=== PATIENT | male | born 1935 | race Caucasian/White ===

== ENCOUNTER 2019-01-12 07:44 | Day surgery (SDC) | payer MEDICARE, BC ==
[2019-01-11 09:31] VITALS: BMI 29.2
[2019-01-12] MEDS ORDERED: PROPOFOL 200 MG/20 ML VIAL ONE (10:16)
--- NOTE | 2019-01-12 11:50 | OP ---
DATE OF PROCEDURE: 01/12/2019 [employer] SURGEON: None. PROCEDURE PERFORMED: Colonoscopy with snare polypectomy. INDICATIONS: 1. Rectal bleeding. 2. Prior history of colon polyps, with last colonoscopy about 11 years ago. MEDICATIONS: See Anesthesia record. FINDINGS: After discussion of the risks, benefits, and alternatives of the procedure, informed consent was obtained and witnessed. Pre-endoscopic cardiopulmonary examination was satisfactory. Time-out was performed before sedation was achieved. Sedation was achieved with Anesthesia assistance in the endoscopy unit. Digital rectal exam was performed, which demonstrated external hemorrhoids. A Pentax adult colonoscope was inserted into the anus and passed forward to the cecum in the usual fashion. Advancement to the cecum was very difficult due to tortuous and redundant colon with extensive colonic looping. Manual pressure and supine positioning required in order to reach the cecum. The cecal base was identified by the appendiceal orifice as well as the ileocecal valve. The terminal ileum was not intubated. The colonoscope was slowly withdrawn in a gradual and circumferential manner with careful examination of the entire colonic mucosa. The quality of the prep was good. In the ascending colon, there were 4 small polyps, all measuring less than 3 mm in diameter. These were all completely removed with cold snare. I was only able to retrieve 1 or 2 of these polyps due to extreme difficulty with positioning of the colonoscope for retrieval. In the sigmoid colon, there was another polyp measuring about 2 mm in diameter. This was completely removed with cold snare and retrieved for pathology. In the rectum, there was another polyp measuring about 2 mm. This was also completely removed with cold snare and retrieved for pathology. There was extensive diverticulosis in the sigmoid colon as well as some in the descending colon. Retroflexion in the rectum demonstrated internal hemorrhoids. The colonoscope was completely withdrawn and the patient allowed to recover. The patient tolerated the procedure well. There were no immediate postprocedure complications. IMPRESSION: 1. Tortuous colon. 2. Heavy sigmoid diverticulosis. 3. Four diminutive ascending colon polyps, all completely removed with cold snare, partially retrieved. 4. Single 2-mm sigmoid colon polyp, completely removed with cold snare and retrieved for pathology. 5. Single 2-mm rectal polyp, completely removed with cold snare and retrieved for pathology. 6. Internal and external hemorrhoids. RECOMMENDATIONS: 1. Follow up pathology on the colon polyps. 2. I would recommend no repeat colonoscopy, due to the patient's age and comorbidities. 3. Add a stool softener, docusate 100 mg by mouth twice daily. Follow up with Dr. Joseph if surgical treatment of hemorrhoids is desired, though I would advise at least giving the stool softeners a good trial and waiting until after his upcoming cardiac procedures. 4. Follow up in the GI Clinic as needed. 5. Follow up as needed. Job ID: [id number]
== END 2019-01-12 12:10 | disposition home or self-care (01) ==
LOC: SDC 07:44
PROVIDERS: ATTEND Internal Medicine
PROC: 0DBK8ZZ Excision of Ascending Colon, Via Natural or Artificial Opening Endoscopic (ICD-10-PCS; principal; 2019-01-12)
PROC: 0DBN8ZZ Excision of Sigmoid Colon, Via Natural or Artificial Opening Endoscopic (ICD-10-PCS; 2019-01-12)
PROC: 0DBP8ZZ Excision of Rectum, Via Natural or Artificial Opening Endoscopic (ICD-10-PCS; 2019-01-12)
DX: K62.5 Hemorrhage of anus and rectum (principal); D12.5 Benign neoplasm of sigmoid colon; K62.1 Rectal polyp; K56.2 Volvulus; K57.30 Diverticulosis of large intestine without perforation or abscess without bleeding; K64.4 Residual hemorrhoidal skin tags; K64.8 Other hemorrhoids; E11.9 Type 2 diabetes mellitus without complications; N40.0 Benign prostatic hyperplasia without lower urinary tract symptoms; E78.00 Pure hypercholesterolemia, unspecified; Z79.82 Long term (current) use of aspirin; Z79.899 Other long term (current) drug therapy; Z86.010 Personal history of colon polyps; Z87.891 Personal history of nicotine dependence
CPT/HCPCS: 88305

== ENCOUNTER 2019-05-16 11:19 | Outpatient (CLI) | payer MEDICARE, BC ==
[2019-05-16 13:38] LABS: #Eosinphils 0.1 thou/uL (0.0-0.7); #Lymphocytes 1.8 thou/uL (1.20-3.40); #Monocytes 0.6 thou/uL (0.11-0.59); #Neutrophils 5.3 thou/uL (1.40-6.50); %Basophils 0.2 % (0.0-1.0); %Eosinophils 1.2 % (0.0-10.0); %Lymphocytes 22.8 % (21.0-51.0); %Neutrophils 67.9 % (42.0-75.0); Hemoglobin 15.2 g/dL (14.0-18.0); Mean Corpuscular HGB CONC 33.7 g/dL (32.0-36.0); Platelet Count 163 thou/uL (130-400); RBC Distribution Width 11.8 % (11.5-14.5); Red Blood Cell (RBC) Count 5.09 mill/uL (4.70-6.10); White Blood Cell (WBC) Count 7.8 thou/uL (4.8-10.8)
[2019-05-16 14:02] LABS: ALT (SGPT) 25 U/L (8-55); AST (SGOT) 22 U/L (5-34); Albumin 4.2 g/dL (3.4-4.8); Alkaline Phosphatase 90 U/L (40-110); Anion Gap 11 mmol/L (10-20); BUN (Urea Nitrogen) 27 mg/dL (8.4-25.7); Bilirubin, Direct 0.3 mg/dL (0.1-0.3); Bilirubin, Total 0.6 mg/dL (0.2-1.2); Calc. Creatinine Clearance 0 mL/min (70-130); Calcium 9.4 mg/dL (7.8-10.44); Carbon Dioxide 29 mmol/L (23-31); Chloride 105 mmol/L (98-107); Estimated GFR-MDRD 59; Glucose 92 mg/dL (83-110); Protein, Total 7.1 g/dL (5.8-8.1); Sodium 141 mmol/L (136-145)
== END 2019-05-16 11:20 | disposition home or self-care (01) ==
LOC: LABBT 11:19
PROVIDERS: ATTEND Surgery
DX: Z01.818 Encounter for other preprocedural examination (principal); K64.9 Unspecified hemorrhoids
CPT/HCPCS: 80048; 80076; 85025; 93005; 93010

== ENCOUNTER 2019-05-19 08:35 | Day surgery (SDC) | payer MEDICARE, BC ==
[2019-05-16 12:35] VITALS: BMI 29.2
[2019-05-19] MEDS ORDERED: ceFOXitin 2 GM/50 ML Duplex BAG ONE (09:23)
[2019-05-19] MEDS ORDERED: Bacitracin Zinc Ointment 30 gm TUBE ONE (10:31)
[2019-05-19] MEDS ORDERED: Bupivacaine PF 0.5% 30 ML VIAL ONE (10:31)
[2019-05-19] MEDS ORDERED: Lidocaine 1% w/Epinephrine 1:100K 20 ML VIAL ONE (10:31)
[2019-05-19] MEDS ORDERED: Fentanyl 100 MCG/2 ML VIAL ONE (10:34)
[2019-05-19] MEDS ORDERED: PHENYLEPHRINE-NS 100 MCG/ML 10 ML SYRINGE ONE (10:54)
[2019-05-19] MEDS ORDERED: Dexamethasone 20 MG/5 ML VIAL ONE (10:54)
[2019-05-19] MEDS ORDERED: PROPOFOL 200 MG/20 ML VIAL ONE (10:54)
[2019-05-19] MEDS ORDERED: Glycopyrrolate 0.2 MG/ML 5 ML SYRINGE ONE (10:54)
[2019-05-19] MEDS ORDERED: Rocuronium Bromide 10 MG/ML (10ML VIAL) ONE (10:54)
[2019-05-19] MEDS ORDERED: Lidocaine 1% PF 5 ML VIAL ONE (10:54)
[2019-05-19] MEDS ORDERED: Ondansetron PF 4 MG/2 ML Vial ONE (10:54)
[2019-05-19] MEDS ORDERED: HYDROcodone/Acetaminophen 5/325 mg Tablet ONE ×2 (12:50→16:13)
--- NOTE | 2019-05-21 16:33 | OP ---
DATE OF PROCEDURE: 05/19/2019 PREOPERATIVE DIAGNOSIS: Bleeding hemorrhoids. PROCEDURE PERFORMED: PPH-stapled hemorrhoidectomy. INDICATIONS: This is an 83-year-old male, who has been having a several-year history of rectal bleeding. Colonoscopy showed it to be from the hemorrhoids. At one point, he had to be transfused due to the bleeding and now because of cardiac valvular issues, needs to be placed on anticoagulation. FINDINGS: Grade 3 prolapsing hemorrhoids. DESCRIPTION OF PROCEDURE: After informed consent was obtained, the patient was taken to the operating room, given general endotracheal anesthesia, placed in the prone brennan-knife position. Buttock cheeks were spread apart with tape. Local anesthesia with 0.5% Marcaine was infiltrated as a four-quadrant anal block. The anal retractor was inserted maximally and sutured in place with 0 silk suture in 4 quadrants. The pursestring guide was then inserted and a pursestring of 2-0 Prolene was placed circumferentially in the rectal mucosa 1.5 cm from the dentate line. The stapler was opened maximally. The anvil was inserted proximal to the pursestring. The strings were brought through the channels on the stapler and tied as a knot. This was then held closed around the shaft as the stapler closed. The stapler was fired, held for 30 seconds, then released for 30 seconds, opened partially and removed. The specimen inspected, contained hemorrhoids, no muscle fibers. These were sent to Pathology for further analysis. There was some bleeding anteriorly, which was controlled with a 3-0 chromic [id number]. The area was irrigated. Hemostasis was assured. Gelfoam impregnated with bacitracin was placed within the anal canal. Sterile bandage applied. The patient tolerated the procedure well, transferred to Recovery in good condition. Sponge and needle count verified correct x2. Job ID: [id number]
== END 2019-05-19 16:25 | disposition home or self-care (01) ==
LOC: SDC 08:35
PROVIDERS: ATTEND Surgery
PROC: 06BY3ZC Excision of Hemorrhoidal Plexus, Percutaneous Approach (ICD-10-PCS; principal; 2019-05-19)
DX: K64.2 Third degree hemorrhoids (principal); E78.00 Pure hypercholesterolemia, unspecified; I10 Essential (primary) hypertension; M19.90 Unspecified osteoarthritis, unspecified site; Z87.891 Personal history of nicotine dependence; Z79.82 Long term (current) use of aspirin; Z79.899 Other long term (current) drug therapy
CPT/HCPCS: 88304; J0694; J1100; J2001; J2405; J2704; J3010; S0020

== ENCOUNTER 2019-09-25 06:29 | Outpatient (CLI) | payer MEDICARE, BC, OTHER ==
[2019-09-25 14:34] LABS: #Eosinphils 0.1 thou/uL (0.0-0.7); #Lymphocytes 1.3 thou/uL (1.20-3.40); #Monocytes 0.5 thou/uL (0.11-0.59); #Neutrophils 5.8 thou/uL (1.40-6.50); %Basophils 0.3 % (0.0-1.0); %Lymphocytes 17.1 % (21.0-51.0); %Monocytes 6.4 % (0.0-10.0); %Neutrophils 75.2 % (42.0-75.0); Hemoglobin 15.7 g/dL (14.0-18.0); Mean Corpuscular Hemoglobin 29.6 pg (27.0-31.0); Mean Corpuscular Volume 89.8 fL (78.0-98.0); Mean Platelet Volume 7.4 fL (7.4-10.4); Platelet Count 176 thou/uL (130-400); RBC Distribution Width 11.7 % (11.5-14.5); Red Blood Cell (RBC) Count 5.29 mill/uL (4.70-6.10); White Blood Cell (WBC) Count 7.7 thou/uL (4.8-10.8)
[2019-09-25 14:43] LABS: ALT (SGPT) 25 U/L (8-55); AST (SGOT) 20 U/L (5-34); Albumin 4.3 g/dL (3.4-4.8); Alkaline Phosphatase 89 U/L (40-110); Anion Gap 12 mmol/L (10-20); BUN (Urea Nitrogen) 26 mg/dL (8.4-25.7); Bilirubin, Total 0.6 mg/dL (0.2-1.2); Calc. Creatinine Clearance 0 mL/min (70-130); Calcium 9.1 mg/dL (7.8-10.44); Carbon Dioxide 26 mmol/L (23-31); Chloride 106 mmol/L (98-107); Estimated GFR-MDRD 57; Globulin 2.7 g/dL (2.4-3.5); Glucose 101 mg/dL (83-110); Sodium 140 mmol/L (136-145)
[2019-09-26 13:10] LABS: SARS-CoV-2 MS2 Positive; SARS-CoV-2 N Gene Negative; SARS-CoV-2 S Gene Negative; SARS-CoV-2 orf1ab Negative
== END 2019-09-25 06:30 | disposition home or self-care (01) ==
LOC: LABBT 06:29
PROVIDERS: ATTEND Internal Medicine Cardiovascular Disease
DX: Z01.812 Encounter for preprocedural laboratory examination (principal); Z11.59 Encounter for screening for other viral diseases; I35.0 Nonrheumatic aortic (valve) stenosis
CPT/HCPCS: 80053; 85025; U0003; 87635

== ENCOUNTER 2019-09-28 05:50 | Day surgery (SDC) | payer MEDICARE, BC ==
[2019-09-25 10:11] VITALS: BMI 27.3
[2019-09-28] MEDS ORDERED: Midazolam HCl 2 mg/2 ml Vial ONE (08:48)
[2019-09-28] MEDS ORDERED: Fentanyl 100 MCG/2 ML VIAL ONE (08:48)
[2019-09-28] MEDS ORDERED: Nitroglycerin 2% Ointment 1 INCH/1 GM Packet ONE (09:25)
== END 2019-09-28 14:55 | disposition home or self-care (01) ==
LOC: CCL 05:50
PROVIDERS: ATTEND Internal Medicine Cardiovascular Disease
PROC: 4A023N7 Measurement of Cardiac Sampling and Pressure, Left Heart, Percutaneous Approach (ICD-10-PCS; principal; 2019-09-28)
PROC: B2111ZZ Fluoroscopy of Multiple Coronary Arteries using Low Osmolar Contrast (ICD-10-PCS; 2019-09-28)
DX: I35.0 Nonrheumatic aortic (valve) stenosis (principal); I25.10 Atherosclerotic heart disease of native coronary artery without angina pectoris; I70.0 Atherosclerosis of aorta; I45.10 Unspecified right bundle-branch block; I10 Essential (primary) hypertension; E78.00 Pure hypercholesterolemia, unspecified; K21.9 Gastro-esophageal reflux disease without esophagitis; I49.3 Ventricular premature depolarization; G47.30 Sleep apnea, unspecified; Z86.73 Personal history of transient ischemic attack (TIA), and cerebral infarction without residual deficits; Z87.891 Personal history of nicotine dependence; Z79.82 Long term (current) use of aspirin; Z79.899 Other long term (current) drug therapy
CPT/HCPCS: 76942; 93454; 99152; 99153; J1644; J2250; J3010; Q9967

== ENCOUNTER 2019-10-25 12:01 | Outpatient (CLI) | payer MEDICARE, BC, OTHER ==
[2019-10-26 13:27] LABS: SARS-CoV-2 MS2 Positive; SARS-CoV-2 N Gene Negative; SARS-CoV-2 S Gene Negative; SARS-CoV-2 orf1ab Negative
== END 2019-10-25 12:02 | disposition home or self-care (01) ==
LOC: LABSCS 12:01
PROVIDERS: ATTEND Internal Medicine Cardiovascular Disease
DX: Z01.812 Encounter for preprocedural laboratory examination (principal); Z11.59 Encounter for screening for other viral diseases; I10 Essential (primary) hypertension
CPT/HCPCS: 87635; U0003

== ENCOUNTER 2020-02-29 20:27 | Inpatient (IN) | payer MEDICARE, BC ==
[~2020-02-29 20:27] MED LIST: Iopamidol-370 76% 500 ML 1 ML ONE
[2020-02-29 21:19] LABS: #Lymphocytes 0.5 thou/uL (1.20-3.40); #Monocytes 1.1 thou/uL (0.11-0.59); #Neutrophils 11.2 thou/uL (1.40-6.50); %Eosinophils 0.1 % (0.0-10.0); %Monocytes 8.8 % (0.0-10.0); %Neutrophils 87.2 % (42.0-75.0); Hemoglobin 14.9 g/dL (14.0-18.0); Mean Corpuscular HGB CONC 33.8 g/dL (32.0-36.0); Mean Corpuscular Hemoglobin 29.8 pg (27.0-31.0); Mean Platelet Volume 7.5 fL (7.4-10.4); Platelet Count 134 thou/uL (130-400); RBC Distribution Width 11.9 % (11.5-14.5); Red Blood Cell (RBC) Count 5.01 mill/uL (4.70-6.10); White Blood Cell (WBC) Count 12.9 thou/uL (4.8-10.8)
--- NOTE | 2020-02-29 21:19 | RAD ---
RADIOGRAPH CHEST 1 VIEW: DATE: 02/29/2020 HISTORY: 84-year-old male with cough and fever FINDINGS: The thoracic aorta is tortuous and ectatic. There is no evidence of airspace density, pulmonary edema , or pneumothorax. The lateral costophrenic angles are not effaced. Mildly elevated left hemidiaphragm. Minimal left basilar subsegmental atelectasis. IMPRESSION: 1) No acute pulmonary findings. 2) ectasia of thoracic aorta.
[2020-02-29 21:31] LABS: ALT (SGPT) 18 U/L (8-55); AST (SGOT) 17 U/L (5-34); Albumin 4.1 g/dL (3.4-4.8); Alkaline Phosphatase 90 U/L (40-110); Anion Gap 16 mmol/L (10-20); BUN (Urea Nitrogen) 39 mg/dL (8.4-25.7); Bilirubin, Total 0.9 mg/dL (0.2-1.2); Calc. Creatinine Clearance 0 mL/min (70-130); Calcium 9.4 mg/dL (7.8-10.44); Carbon Dioxide 23 mmol/L (23-31); Chloride 106 mmol/L (98-107); Estimated GFR-MDRD 37; Globulin 3.3 g/dL (2.4-3.5); Glucose 124 mg/dL (83-110); Potassium 3.3 mmol/L (3.5-5.1); Protein, Total 7.4 g/dL (5.8-8.1); Sodium 142 mmol/L (136-145)
[2020-02-29 21:52] LABS: Bilirubin Negative (Negative); Blood, Urine Large (Negative); Glucose, Urine (Dipstick) Negative (Negative); Ketone, Urine Negative (Negative); Leukocyte Moderate (Negative); Nitrite Negative (Negative); Protein, Urine (Dipstick) 100 mg/dL (Neg-Trace); Specific Gravity, Urine 1.025 (1.005-1.030); Urobilinogen 0.2 mg/dL (Less than 2); pH, Urine 5.5 (5.0-9.0)
[2020-02-29 21:59] LABS: Clarity Cloudy (Clear)
[2020-02-29 22:01] LABS: Bacteria/HPF 3+ HPF (None Seen); Squamous Epithelial 0-3 HPF (0-3); WBC/HPF 21-50 HPF (0-3)
[2020-02-29] MEDS ORDERED: cefTRIAXone\\ROCEPHIN 2 GM VIAL ONE (22:11)
--- NOTE | 2020-02-29 23:07 | CT ---
CT ABDOMEN WITH CONTRAST CT PELVIS WITH CONTRAST: DATE: 02/29/2020 HISTORY: 84-year-old male with fever, abdominal pain, nausea, and vomiting COMPARISON: 11/21/2018 TECHNIQUE: IV injection of iodinated contrast media: administered. Oral contrast media:Not administered FINDINGS: Multiple moderate sized bilateral renal cysts, including parapelvic and cortical cysts. Both of the previously demonstrated left renal lower pole calculi have migrated distally. One of them, an 11 x 9 x 7 mm calculus, is in the posterior, dependent aspect of the left renal pelvi s (and the left renal pelvis is extrinsically compressed by a large parapelvic hemorrhagic renal cyst that measures 6 x 4.5 x 5.5 cm). The other calculus, measuring 11 x 8 x 8 mm, is lodged at the left UPJ or proximal ureter, located at the L3-4 level. This causes a new finding of moderate dilation of all of the left renal calyces. There is another new finding of an organized fluid throughout the left perirenal space, consistent wi th edema and/or extravasated urine from pyelocalyceal blowout. No hydronephrosis of right kidney. Multilevel severe degenerative disc disease throughout the lumbar spine with multilevel high-grade bi lateral neural foraminal stenosis. Paget's disease of entire left ilium, ischium, and pubis. Enlarged prostate invaginating bladder base. Mural thickness of urinary bladder within normal limits. Heavy atherosclerotic callus patient of abdominal aorta and its branches without aneurysm. New nonspecific platelike streaky densities at base of left lower lobe, either subsegmental atelectas is or scarring. No pleural effusion, ascites, small bowel dilation, or colonic diverticulitis. No major pathology identified involving liver, pancreas, adrenals, or spleen. Cecum and noninflamed appendix are in the right upper quadrant.. IMPRESSION: 1) left-sided obstructive uropathy: An 11 mm calculus lodged at the left proximal ureter or ureterope lvic junction, causing left hydronephrosis, and fluid throughout the left perirenal space. 2) the other 11 mm calculus has migrated to the left renal pelvis, and could be a source of obstructi on in the future. 3) large number of moderate to large bilateral renal cysts, both parapelvic and cortical 4) severe lumbar spondylosis. 5) Paget's disease involving entire left hemipelvis..
[2020-02-29] MEDS ORDERED: Ondansetron PF 4 MG/2 ML Vial IVP PRN (23:43)
[2020-02-29] MEDS ORDERED: Acetaminophen 650 MG Suppository PR PRN (23:43)
[2020-02-29] MEDS ORDERED: Sodium Chloride 0.9% 1,000 ML IV SCH (23:45)
[2020-03-01] MEDS ORDERED: Morphine 2 MG/ML VIAL SLOW IVP PRN (00:25)
--- NOTE | 2020-03-01 00:32 | PDOC.BPN ---
- Brief Progress Note [id number] HP dictated
[2020-03-01 02:33] VITALS: BMI 28.5
--- NOTE | 2020-03-01 02:44 | HP ---
CHIEF COMPLAINT: Abdominal pain, nausea and vomiting. HISTORY OF PRESENT ILLNESS: Mr. Galo is an 84-year-old male, with past medical history of TIA, renal insufficiency, umbilical and groin hernia, coronary artery bypass graft surgery x1, hyperlipidemia, and kidney stones, presented to the emergency room with lower abdominal pain, left flank pain as well as dysuria for the last 2 days. Patient also had nausea and vomiting. Patient states that the abdominal pain began yesterday and got severe last night and he could not sleep. He was given oral Flagyl and Levaquin by his primary care physician for suspected diverticulitis. Patient continued to have severe pain and dysuria today. He felt very weak and had urine incontinence. Denies chest pain. No cough. Workup in the emergency room, patient was found to have left-sided obstructive uropathy and an 11 mm calculus lodged at the left proximal ureter causing left hydronephrosis. Patient was found to have an infected urine. Potassium 3.3, creatinine 1.7. Glucose 124. WBC count elevated at 12.9. Chest x-ray, no acute findings. Patient was given IV antibiotics, urologist being consulted. Patient is being admitted to hospital for further management. PAST MEDICAL HISTORY: As mentioned above in history of present illness. PAST SURGICAL HISTORY: 1. Hernia repair. 2. Fatty tumor removal. PAST PSYCHIATRIC HISTORY: Anxiety. FAMILY HISTORY: Reviewed and noncontributory. HOME MEDICATIONS: See home medication reconciliation form for updated medications. ALLERGIES: NO KNOWN ALLERGIES. REVIEW OF SYSTEMS: Review of 14 systems negative, except what is mentioned in history of present illness. PHYSICAL EXAMINATION: GENERAL: Patient is awake, alert, in moderate distress. VITAL SIGNS: Blood pressure 139/61, pulse is 85, respiratory rate is 24, temperature is 99.2, and oxygen saturation is 94% on room air. HEAD AND NECK: Normocephalic, atraumatic. Neck is supple. No JVD. CHEST: Fair bilateral air entry. HEART: S1, S2. Regular. ABDOMEN: Soft with lower abdominal tenderness, bowel sounds present. NEUROLOGIC: Awake, alert, and oriented x3. PSYCH: Normal mood. GENITOURINARY: Left flank tenderness and suprapubic tenderness. ASSESSMENT AND PLAN: 1. Infected ureter calculus with left-sided hydronephrosis. 2. Acute urinary tract infection. 3. Acute kidney injury on chronic kidney disease. 4. Coronary artery disease with history of coronary artery bypass graft surgery. 5. Hyperlipidemia. PLAN: 1. Admit. 2. N.p.o. after midnight. 3. IV fluids. 4. IV antibiotics. 5. Urologist consult for further management. 6. Reconcile home medications. 7. DVT prophylaxis if appropriate. 8. Expected length of stay, 2 midnights. Job ID: [id number]
[2020-03-01 04:10] LABS: Anion Gap 14 mmol/L (10-20); BUN (Urea Nitrogen) 38 mg/dL (8.4-25.7); Calc. Creatinine Clearance 45 mL/min (70-130); Calcium 8.5 mg/dL (7.8-10.44); Carbon Dioxide 24 mmol/L (23-31); Chloride 109 mmol/L (98-107); Estimated GFR-MDRD 41; Glucose 137 mg/dL (83-110); Potassium 3.2 mmol/L (3.5-5.1); Sodium 144 mmol/L (136-145)
[2020-03-01 04:32] LABS: #Lymphocytes 0.2 thou/uL (1.20-3.40); #Monocytes 0.7 thou/uL (0.11-0.59); #Neutrophils 9.4 thou/uL (1.40-6.50); %Basophils 0.1 % (0.0-1.0); %Lymphocytes 2.2 % (21.0-51.0); %Monocytes 7.1 % (0.0-10.0); %Neutrophils 90.6 % (42.0-75.0); Hemoglobin 13.1 g/dL (14.0-18.0); Mean Corpuscular HGB CONC 34.1 g/dL (32.0-36.0); Mean Corpuscular Hemoglobin 30.2 pg (27.0-31.0); Mean Corpuscular Volume 88.6 fL (78.0-98.0); Mean Platelet Volume 7.3 fL (7.4-10.4); Platelet Count 108 thou/uL (130-400); Platelet Morphology Comment Appears Decreased; RBC Distribution Width 11.9 % (11.5-14.5); Red Blood Cell (RBC) Count 4.33 mill/uL (4.70-6.10); White Blood Cell (WBC) Count 10.4 thou/uL (4.8-10.8)
[2020-03-01] MEDS ORDERED: ALPRAZolam 0.25 MG TAB PO PRN (06:56)
--- NOTE | 2020-03-01 08:35 | CON ---
DATE OF CONSULTATION: 03/01/2020 REASON FOR CONSULTATION: Kidney stone. CHIEF COMPLAINT: Fevers. HISTORY OF PRESENT ILLNESS: This is an 84-year-old male, patient of Dr. Rich with a history of kidney stones. He has passed 2 stones in the past. For the past week, he has been having chills mostly at night and then began to have abdominal pain that his primary care provider initially felt was diverticulitis. He became more weak through the day yesterday and began having worsening urinary incontinence, which is present at his baseline. He presented to the emergency room, reporting left-sided abdominal pain, fever of 104, and weakness. In the ER, CT scan identified a large left proximal ureteral stone with hydronephrosis. He was admitted for hydronephrosis and sepsis. overnight, his pain has mostly resolved, having only discomfort 1/10 to 2/10. He has not had any further fevers or chills overnight. He does continue to have incontinence and notes hematuria. He is currently on finasteride and tamsulosin, but has never had prostate surgery. PAST MEDICAL HISTORY: Coronary artery disease, hyperlipidemia, kidney stones, and enlarged prostate. PAST SURGICAL HISTORY: Hernia repair. FAMILY HISTORY: Reviewed, noncontributory. HOME MEDICATIONS: Reviewed, pertinent for tamsulosin and finasteride. ALLERGIES: NO KNOWN ALLERGIES. SOCIAL HISTORY: . Lives at home. REVIEW OF SYSTEMS: 12-point review of systems is negative except as mentioned above. PHYSICAL EXAMINATION: GENERAL: No acute distress. Conversant. HEENT: Normocephalic, atraumatic. Extraocular movements intact. Sclerae anicteric. NECK: Supple. Trachea midline. Unlabored breathing. Symmetric chest expansion. HEART: Regular rate and rhythm. ABDOMEN: Soft, nontender, nondistended. No flank tenderness. No suprapubic tenderness. Adult diaper with mildly hematuric urine. SKIN: Warm and dry. EXTREMITIES: No peripheral edema. NEUROLOGIC: Alert and oriented x3. PSYCHIATRIC: Normal mood and affect. LABORATORY DATA: Reviewed. White count 12.9 on admission, 10.4 this morning. Creatinine 1.77 on admission, 1.63 this morning. IMAGING: I personally reviewed his CT scan, which does show a 10- to 11-mm proximal left ureteral stone with a similar stone further into the renal pelvis with hydronephrosis. ASSESSMENT AND PLAN: Left ureteral and renal stones, hydronephrosis, urinary tract infection. Given the patient's age and obstructing stone with infection, we will need to proceed with cystoscopy and stent placement. I explained this procedure to him in detail including the expected postoperative course including the need for stone treatment at some point down the road likely with Dr. Rich, and the risks of the procedure including bleeding, infection, pain, and inability to bypass the stone to place a stent, possibly requiring nephrostomy tube. He and his expressed understanding and wished to proceed. Job ID: [id number]
[2020-03-01] MEDS ORDERED: Finasteride 5 MG TAB PO SCH (09:00)
[2020-03-01] MEDS: Rosuvastatin 20 MG TAB PO SCH (09:01)
[2020-03-01] MEDS: Amlodipine 10 MG TAB PO SCH (09:01)
[2020-03-01] MEDS: Finasteride 5 MG TAB PO SCH (09:01)
[2020-03-01 09:39] LABS: SARS-CoV-2 MS2 Positive; SARS-CoV-2 N Gene Negative; SARS-CoV-2 S Gene Negative; SARS-CoV-2 by NAA Not Detected (NotDetected); SARS-CoV-2 orf1ab Negative
[2020-03-01] MEDS: cefTRIAXone\\ROCEPHIN 1 GM in Sodium Chloride 0.9% 100 ML IVPB SCH (12:30)
--- NOTE | 2020-03-01 13:09 | PDOC.HOSPP ---
- Subjective Encounter Date: 03/01/20 Encounter Time: 12:15 Subjective: is npo for cystoscopy later today left loin pain is better now mild sob on talking, no chest pain or palp no nausea or vomiting now - Objective Vital Signs & Weight: Vital Signs (12 hours) Temp Pulse Resp BP Pulse Ox 03/01/20 09:01 70 03/01/20 07:19 98.2 F 70 18 121/58 L 94 L 03/01/20 04:00 98.3 F 91 16 132/60 94 L 03/01/20 01:10 98.5 F 100 20 168/85 H 93 L Weight Weight 204 lb 3.2 oz I&O: 02/29/20 03/01/20 03/02/20 06:59 06:59 06:59 Intake Total 500 Output Total 320 Balance 180 Result Diagrams: 03/01/20 03:42 03/01/20 03:42 Hospitalist ROS - Medication Medications: Active Medications Generic Name Dose Route Start Last Admin Trade Name Freq PRN Reason Stop Dose Admin Amlodipine Besylate 10 mg 03/01/20 09:00 03/01/20 09:01 Amlodipine 10 Mg Tab PO 10 mg DAILY AZALIA Administration Finasteride 5 mg 03/01/20 09:00 03/01/20 09:01 Finasteride 5 Mg Tab PO 5 mg DAILY AZALIA Administration Ceftriaxone Sodium 1 gm/ 100 mls @ 200 mls/hr 03/01/20 12:00 03/01/20 12:30 Sodium Chloride IVPB 100 mls Q24HR AZALIA Administration Ondansetron HCl 4 mg 02/29/20 23:43 03/01/20 01:53 Ondansetron Pf 4 Mg/2 Ml Vial IVP 4 mg Q6H PRN Administration Nausea/Vomiting Pantoprazole Sodium 40 mg 03/01/20 09:00 03/01/20 09:00 Pantoprazole 40 Mg Tab PO 40 mg DAILY AZALIA Administration Rosuvastatin Calcium 20 mg 03/01/20 09:00 03/01/20 09:01 Rosuvastatin 20 Mg Tab PO 20 mg DAILY AZALIA Administration Sertraline HCl 200 mg 03/01/20 09:00 03/01/20 09:00 Sertraline Hcl 100 Mg Tab PO 200 mg DAILY AZALIA Administration Sodium Chloride 10 ml 03/01/20 09:00 03/01/20 09:01 Flush - Normal Saline 10 Ml Syringe IVF 10 ml Q12HR AZALIA Administration - Exam General Appearance: awake alert Eye: PERRL, anicteric sclera ENT: no oropharyngeal lesions, moist mucosa Neck: supple, symmetric Heart: RRR, no murmur Respiratory: no wheezes, rales Gastrointestinal: soft, non-tender, non-distended, normal bowel sounds Extremities: no cyanosis, no edema Neurological: cranial nerve grossly intact, no focal deficits Psychiatric: A&O x 3 Hosp A/P (1) Ureteral stone with hydronephrosis Code(s): N13.2 - HYDRONEPHROSIS WITH RENAL AND URETERAL CALCULOUS OBSTRUCTION Status: Acute (2) UTI (urinary tract infection) Status: Acute Qualifiers: Urinary tract infection type: acute cystitis Hematuria presence: with hematuria Qualified Code(s): N30.01 - Acute cystitis with hematuria (3) Acute kidney injury superimposed on CKD Code(s): N17.9 - ACUTE KIDNEY FAILURE, UNSPECIFIED; N18.9 - CHRONIC KIDNEY DISEASE, UNSPECIFIED Status: Acute (4) h/o tavr Status: Chronic (5) CAD (coronary artery disease) Code(s): I25.10 - ATHSCL HEART DISEASE OF [place] CORONARY ARTERY W/O ANG PCTRS Status: Chronic Qualifiers: Coronary Disease-Associated Artery/Lesion type: [place] artery [place] vs. transplanted heart: [place] heart Associated angina: without angina Qualified Code(s): I25.10 - Atherosclerotic heart disease of [place] coronary artery without angina pectoris (6) Dyslipidemia Code(s): E78.5 - HYPERLIPIDEMIA, UNSPECIFIED Status: Chronic (7) BPH (benign prostatic hyperplasia) Code(s): N40.0 - BENIGN PROSTATIC HYPERPLASIA WITHOUT LOWER URINRY TRACT SYMP Status: Chronic Qualifiers: Lower urinary tract symptom presence: unspecified whether lower urinary tract symptoms present Qualified Code(s): N40.0 - Benign prostatic hyperplasia without lower urinary tract symptoms - Plan is on ceftriaxone dc iv fluids due to mild volume overload, watch for BP and if needed restart h/o tavr done in November in [facility] will get echo for ef and valve function continue norvasc, zetia, crestor, sertraline, flomax and proscar hemostable d/w patient and at bedside will have cystoscopy and stenting on left side this afternoon by
[2020-03-01] MEDS ORDERED: Lidocaine 1% PF 5 ML VIAL ONE (13:14)
[2020-03-01] MEDS ORDERED: PROPOFOL 200 MG/20 ML VIAL ONE (13:14)
[2020-03-01] MEDS ORDERED: Ondansetron PF 4 MG/2 ML Vial ONE (13:14)
[2020-03-01] MEDS ORDERED: Dexamethasone 20 MG/5 ML VIAL ONE (13:14)
--- NOTE | 2020-03-01 14:11 | CON ---
DATE OF CONSULTATION: 03/01/2020 SERVICE: Nephrology. REASON FOR CONSULTATION: Acute kidney injury and hydronephrosis. REQUESTING PHYSICIAN: Taya Aguilar MD. HISTORY OF PRESENT ILLNESS: An 84-year-old male with known history of CKD, coronary artery disease status post CABG, hyperlipidemia, and nephrolithiasis, who presented to the hospital with worsening lower abdominal pain, left flank pain as well as dysuria associated with nausea and vomiting as well as fever. Further evaluation revealed elevated creatinine necessitating nephrology consult. The patient also had a CT scan of the abdomen, which showed an obstructing nephrolithiasis with hydronephrosis on the left side. The patient had been seen by urologist and cystoscopy with stent placement is planned. Patient, who had a high-grade fever on presentation as well as pain, reports feeling a lot better. PAST MEDICAL HISTORY: 1. Aortic valve dysfunction status post TAVR. 2. Prior TIA. 3. CKD stage 3. 4. Umbilical and groin hernia. 5. Coronary artery disease. 6. Hyperlipidemia. 7. Nephrolithiasis. 8. BPH. PAST SURGICAL HISTORY: 1. Hernia repair. 2. TAVR. 3. CABG. 4. Fatty tumor removal. FAMILY HISTORY: Reviewed, but noncontributory. SOCIAL HISTORY: The patient lives with family. ALLERGIES: NO KNOWN DRUG ALLERGIES REPORTED. MEDICATIONS: Prior to hospital medications are as follows; 1. Amlodipine 10 mg p.o. daily. 2. Clonidine 0.1 mg p.o. p.r.n. for acute elevation in blood pressure. 3. Plavix 75 mg p.o. daily. 4. Crestor 20 mg p.o. daily. 5. Aspirin 81 mg daily. 6. Lisinopril/hydrochlorothiazide 20/12.5 one tablet p.o. daily. 7. Finasteride 5 mg p.o. daily. 8. Protonix 40 mg p.o. daily. 9. Sertraline 200 mg p.o. daily. 10. Tamsulosin 0.8 mg p.o. daily at bedtime. 11. Xanax 0.25 mg p.o. daily at bedtime. 12. Zetia 10 mg p.o. daily at bedtime. 13. Levocetirizine 5 mg p.o. daily. Current hospital medications are as follows; 1. Ceftriaxone 1 g IV daily. 2. Normal saline at 75 cc/h. 3. Amlodipine 10 mg p.o. daily. 4. Zetia 10 mg p.o. daily at bedtime. 5. Finasteride 5 mg p.o. daily. 6. Protonix 40 mg p.o. daily. 7. Crestor 20 mg p.o. daily. 8. Sertraline 200 mg p.o. daily. 9. Tamsulosin 0.8 mg p.o. daily. 10. Xanax 0.25 p.o. daily at bedtime p.r.n. anxiety. 11. Morphine p.r.n. REVIEW OF SYSTEMS: 12-point review of systems performed was negative other than pertinent positives and negatives included in the History of Present Illness. PHYSICAL EXAMINATION: VITAL SIGNS: Temperature 98.2, pulse 70, respiratory rate 18, SpO2 of 94% on room air, blood pressure is 121/58. GENERAL: Comfortable elderly male, in no obvious distress. Afebrile. Anicteric. Acyanotic. HEENT: Normocephalic, atraumatic. Oral mucosa is moist. NECK: Supple with no obvious JVD. CARDIOVASCULAR: Regular rhythm and rate with normal heart sounds 1 and 2. Systolic murmur maximal at the aortic area noted. RESPIRATORY: Fair air entry bilaterally with some few bibasilar crackles posteriorly. No obvious rhonchi or use of accessory muscles appreciated. GI: Full, soft, nontender, nondistended with normal bowel sounds. UROGENITAL: Bilateral costophrenic angle tenderness noted. EXTREMITIES: Grossly normal looking atraumatic with no obvious edema or erythema. DAIRY HAND: Conscious and alert, oriented x3 with appropriate mental status. The patient is mildly hard of hearing. Otherwise, cranial nerves 2 through 12 are grossly intact. Moves all extremities. DIAGNOSTIC DATA: CBC today showed WBC count of 10.4, hemoglobin of 13.1, MCV of 88.6, platelets of 108. On presentation, however, WBC was 12.9 and hemoglobin was 14.9, and platelets 134. BMP today showed sodium 144, potassium 3.2, chloride 109, CO2 of 24, BUN 38, creatinine 1.63, glucose 137, calcium 8.5. On presentation yesterday, however, sodium was 142, potassium 3.3, chloride 106, CO2 of 23, BUN 39, creatinine 1.77. Review of medical records showed the patient had a creatinine of 1.21 on September 25, 2019. Baseline creatinine seems to range from 1.0 to 1.2. Urinalysis on presentation yesterday showed yellow cloudy urine with pH of 5.5 specific gravity of 1.025; positive protein; negative glucose, ketone, nitrite, and bilirubin. Blood was large and leukocyte esterase was moderate. Microscopy showed 11 to 20 rbc's and 21 to 50 wbc's with 3+ bacteria. CT scan of the abdomen and pelvis without contrast performed on presentation on February 20 showed left-sided obstructive uropathy with an 11 mm calculus lodged at the left proximal ureter, ureteropelvic junction causing left hydronephrosis. Also noted was another 11 mm calculus, which has migrated to the left renal pelvis and could be a source of the obstruction in the future. Noted also was a large number of moderate to large bilateral renal cysts, both parapelvic and cortical as well as severe lumbar spondylosis and Paget disease involving the entire left hemipelvis. Also found was new organized fluid throughout the left perirenal space consistent with edema or extravasated urine from pyelocaliceal blowout. ASSESSMENT: 1. Acute kidney injury: Most likely due to pyelonephritis and obstructive uropathy. 2. Nephrolithiasis with obstruction. 3. Presumed pyelonephritis/complicated urinary tract infection. 4. Sepsis. 5. Hypokalemia. 6. Chronic kidney disease stage 3. PLAN: 1. Agree with IV fluid therapy. We will, however, substitute normal saline with lactated Ringer in the view of hyperchloremia. 2. We will also get a plasma magnesium level and replete same if indicated given persistent hypokalemia. 3. Agree with antibiotic therapy. 4. We will monitor fluid status closely in view of planned cystoscopy with stent placement. The patient is at increased risk of post obstruction diuresis. 5. We will hold lisinopril and hydrochlorothiazide at this point due to AMOS. Further treatment to follow depending on hospital course and review of other diagnostic test. Job ID: [id number]
[2020-03-01] MEDS ORDERED: Ondansetron HCl/PF 4 MG/2 ML Vial IVP PRN (16:15)
[2020-03-01] MEDS ORDERED: Fentanyl 100 MCG/2 ML VIAL ONE (17:39)
[2020-03-01] MEDS ORDERED: Iothalamate Meglumine 60% 50 ML VIAL FS ONE (18:03)
[2020-03-01] MEDS ORDERED: traMADol HCl 50 MG TAB PO PRN (19:55)
[2020-03-01] MEDS ORDERED: Oxybutynin 5 MG TAB PO PRN (19:55)
[2020-03-01] MEDS ORDERED: Phenazopyridine HCl 97.5 MG TABLET PO PRN (19:55)
[2020-03-01] MEDS ORDERED: Tamsulosin HCl 0.4 MG CAP PO SCH (21:00)
[2020-03-01] MEDS: Tamsulosin HCl 0.4 MG CAP PO SCH (21:18)
[2020-03-01] MEDS: Ezetimibe 10 MG TAB PO SCH (21:18)
[2020-03-01] MEDS: Lactated Ringer's 1,000 ML IV SCH (21:19)
--- NOTE | 2020-03-02 00:02 | OP ---
DATE OF PROCEDURE: 03/01/2020 SERVICE: Urology. PREOPERATIVE DIAGNOSIS: Left ureteral stone and renal stone. POSTOPERATIVE DIAGNOSIS: Left ureteral and renal stone. PROCEDURE PERFORMED: Cystoscopy with left ureteral stent placement 6 x 26 double-J stent. INDICATIONS FOR PROCEDURE: Mr. Galo is an 84-year-old white male, who is currently a patient of Dr. Radhames Rich. He has had kidney stones in the past. He presented to the emergency room with left-sided flank pain with discovery of an 11 mm ureteral and then renal stone as well. 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 Rich behalf since he is not available at the moment. I have discussed the procedure with the patient, including risks and benefits and he agreed to proceed forward. He does understand that he needs to keep the ureteral stent in until Dr. Rich's surgery, but must continue to follow up to avoid serious complication with retained ureteral stent, if he does not follow up. DESCRIPTION OF PROCEDURE: After identification of armband and verification of consent, patient was brought back to the operating room, where he underwent general anesthesia with an LMA. He was placed in dorsal lithotomy position and prepped and draped in usual sterile fashion. After appropriate time-out, a lubricated 22-Vietnamese rigid cystoscope was introduced per urethra into the bladder. The bladder shows moderate trabeculation with multiple cellules. The prostate is hypertrophic with a median lobe and bilateral hyperplasia. There are deep sulci on either side of the median lobe which would make it suitable for UroLift if the patient did require one or if he had significant urinary problems in the future. Attention was then turned to left ureteral orifice which was in its orthotopic location. This was cannulated with a 0.035 Sensor wire until the wire curled within the renal pelvis. A 6 x 26 double-J stent was advanced over the Sensor wire into the renal pelvis and the wire removed leaving a good curl in the kidney and a good curl in the bladder. The bladder was then emptied and the cystoscope removed. The patient was then awakened, taken to PACU for Recovery in stable condition. COMPLICATIONS: None. ESTIMATED BLOOD LOSS: Minimal. RETAINED TUBES AND DRAINS: 6 x 26 double-J stent on the left. SPECIMENS: None. DISPOSITION: Patient will be discharged home. He will be instructed to follow up with Dr. Rich for treatment of his ureteral stones. Of note, the patient's stones are radiolucent. Therefore, ESWL will probably not be a good modality of treatment. The patient would probably do better with ureteroscopy to remove both ureteral and renal stone. Job ID: [id number]
[2020-03-02] MEDS ORDERED: Cepastat Lozenges 1 LOZ PO PRN (07:57)
[2020-03-02] MEDS ORDERED: Zolpidem Tartrate 5 MG TAB PO PRN (07:57)
[2020-03-02] MEDS ORDERED: HYDROcodone/Acetaminophen 5/325 mg Tablet PO PRN (07:57)
[2020-03-02] MEDS ORDERED: Loperamide HCl 2 MG CAP PO PRN (07:57)
[2020-03-02] MEDS ORDERED: Bisacodyl 5 MG TAB PO PRN (07:57)
[2020-03-02] MEDS ORDERED: Calcium Carbonate 500 MG ChewTAB PO PRN (07:57)
[2020-03-02] MEDS ORDERED: Senokot S 8.6-50 MG TAB PO PRN (07:57)
[2020-03-02] MEDS ORDERED: Loratadine 10 MG TAB PO PRN (07:57)
[2020-03-02] MEDS ORDERED: Sodium Chloride 0.65% Nasal 44 ML BOT EA NARE PRN (07:57)
[2020-03-02] MEDS ORDERED: Diabetic Tussin 200 MG/10 ML UDCUP PO PRN (07:57)
[2020-03-02] MEDS ORDERED: hydrALAZINE 20 MG/ML VIAL SLOW IVP PRN (07:57)
[2020-03-02 09:51] LABS: Albumin 3.3 g/dL (3.4-4.8); Anion Gap 14 mmol/L (10-20); BUN (Urea Nitrogen) 39 mg/dL (8.4-25.7); BUN/Creatinine Ratio 28.26; Calc. Creatinine Clearance 53 mL/min (70-130); Calcium 8.6 mg/dL (7.8-10.44); Carbon Dioxide 24 mmol/L (23-31); Chloride 109 mmol/L (98-107); Estimated GFR-MDRD 49; Glucose 134 mg/dL (83-110); Magnesium 2.5 mg/dL (1.6-2.6); Phosphorus 3.4 mg/dL (2.3-4.7); Sodium 143 mmol/L (136-145)
[2020-03-02] MEDS: Rosuvastatin 20 MG TAB PO SCH (10:31)
[2020-03-02] MEDS: Amlodipine 10 MG TAB PO SCH (10:31)
[2020-03-02] MEDS: Finasteride 5 MG TAB PO SCH (10:31)
[2020-03-02] MEDS: Lactated Ringer's 1,000 ML IV SCH ×2 (10:38→19:57)
--- NOTE | 2020-03-02 11:14 | PDOC.HOSPP ---
- Subjective Encounter Date: 03/02/20 Encounter Time: 07:15 Subjective: Patient is able to ambulate with the help to the bathroom, he still has hematuria when he urinate, no fever, overall patient is doing better, his is present bedside - Objective Vital Signs & Weight: Vital Signs (12 hours) Temp Pulse Resp BP Pulse Ox 03/02/20 08:19 97.4 F L 61 16 142/65 H 92 L 03/02/20 04:00 97.8 F 65 18 146/66 H 100 03/02/20 02:00 87 16 169/80 H 97 03/02/20 01:00 90 16 157/73 H 97 03/02/20 00:00 97.9 F 84 16 137/61 99 Weight Weight 204 lb 3.2 oz I&O: 03/01/20 03/02/20 03/03/20 06:59 06:59 06:59 Intake Total 500 1260 Output Total 320 540 Balance 180 720 Result Diagrams: 03/01/20 03:42 03/02/20 09:21 Radiology Reviewed by me: Yes Hospitalist ROS - Review of Systems ENT: denies: ear pain, ear discharge, nose pain, nose discharge, nose congestion, mouth pain, mouth swelling, throat pain, throat swelling, other Respiratory: denies: cough, dry, shortness of breath, hemoptysis, SOB with excertion, pleuritic pain, sputum, wheezing, other Cardiovascular: denies: chest pain, palpitations, orthopnea, paroxysmal noc. dyspnea, edema, light headedness, other Gastrointestinal: denies: nausea, vomiting, abdominal pain, diarrhea, constipation, melena, hematochezia, other Genitourinary: reports: hematuria. denies: dysuria, frequency, incontinence, retention, other Musculoskeletal: denies: neck pain, shoulder pain, arm pain, back pain, hand pain, leg pain, foot pain, other - Medication Medications: Active Medications Generic Name Dose Route Start Last Admin Trade Name Freq PRN Reason Stop Dose Admin Amlodipine Besylate 10 mg 03/01/20 09:00 03/02/20 10:31 Amlodipine 10 Mg Tab PO 10 mg DAILY AZALIA Administration Ezetimibe 10 mg 03/01/20 21:00 03/01/20 21:18 Ezetimibe 10 Mg Tab PO 10 mg HS AZALIA Administration Finasteride 5 mg 03/01/20 09:00 03/02/20 10:31 Finasteride 5 Mg Tab PO 5 mg DAILY AZALIA Administration Ceftriaxone Sodium 1 gm/ 100 mls @ 200 mls/hr 03/01/20 12:00 03/01/20 12:30 Sodium Chloride IVPB 100 mls Q24HR AZALIA Administration Lactated Ringer's 1,000 mls @ 75 mls/hr 03/01/20 19:45 03/02/20 10:38 Lactated Ringer's IV 1,000 mls .[id number] AZALIA Administration Ondansetron HCl 4 mg 02/29/20 23:43 03/01/20 01:53 Ondansetron Pf 4 Mg/2 Ml Vial IVP 4 mg Q6H PRN Administration Nausea/Vomiting Pantoprazole Sodium 40 mg 03/01/20 09:00 03/02/20 10:31 Pantoprazole 40 Mg Tab PO 40 mg DAILY AZALIA Administration Rosuvastatin Calcium 20 mg 03/01/20 09:00 03/02/20 10:31 Rosuvastatin 20 Mg Tab PO 20 mg DAILY AZALIA Administration Sertraline HCl 200 mg 03/01/20 09:00 03/02/20 10:31 Sertraline Hcl 100 Mg Tab PO 200 mg DAILY AZALIA Administration Sodium Chloride 10 ml 03/01/20 09:00 03/02/20 10:43 Flush - Normal Saline 10 Ml Syringe IVF Not Given Q12HR AZALIA Tamsulosin HCl 0.8 mg 03/01/20 21:00 03/01/20 21:18 Tamsulosin Hcl 0.4 Mg Cap PO 0.8 mg HS AZALIA Administration Tramadol HCl 50 mg 03/01/20 19:55 03/02/20 03:58 Tramadol Hcl 50 Mg Tab PO 50 mg Q6H PRN Administration Moderate Pain (4-6) - Exam General Appearance: NAD, awake alert Eye: PERRL, anicteric sclera ENT: normocephalic atraumatic, no oropharyngeal lesions Neck: supple, symmetric, no JVD, no thyromegaly Heart: RRR, no murmur, no gallops, no rubs Respiratory: no wheezes, no rales, no ronchi Gastrointestinal: soft, non-tender, non-distended, normal bowel sounds Extremities: no cyanosis, no clubbing, no edema Skin: normal turgor, no lesions Neurological: no focal deficits Musculoskeletal: normal tone, normal strength Psychiatric: normal affect, normal behavior Hosp A/P (1) Acute kidney injury superimposed on CKD Code(s): N17.9 - ACUTE KIDNEY FAILURE, UNSPECIFIED; N18.9 - CHRONIC KIDNEY DISEASE, UNSPECIFIED Status: Acute (2) UTI (urinary tract infection) Status: Acute Qualifiers: Urinary tract infection type: acute cystitis Hematuria presence: with hematuria Qualified Code(s): N30.01 - Acute cystitis with hematuria (3) Ureteral stone with hydronephrosis Code(s): N13.2 - HYDRONEPHROSIS WITH RENAL AND URETERAL CALCULOUS OBSTRUCTION Status: Acute (4) BPH (benign prostatic hyperplasia) Code(s): N40.0 - BENIGN PROSTATIC HYPERPLASIA WITHOUT LOWER URINRY TRACT SYMP Status: Chronic Qualifiers: Lower urinary tract symptom presence: unspecified whether lower urinary tract symptoms present Qualified Code(s): N40.0 - Benign prostatic hyperplasia without lower urinary tract symptoms (5) CAD (coronary artery disease) Code(s): I25.10 - ATHSCL HEART DISEASE OF [place] CORONARY ARTERY W/O ANG PCTRS Status: Chronic Qualifiers: Coronary Disease-Associated Artery/Lesion type: [place] artery [place] vs. transplanted heart: [place] heart Associated angina: without angina Qualified Code(s): I25.10 - Atherosclerotic heart disease of [place] coronary artery without angina pectoris (6) Dyslipidemia Code(s): E78.5 - HYPERLIPIDEMIA, UNSPECIFIED Status: Chronic (7) h/o tavr Status: Chronic (8) Renal stone Status: Acute - Plan old records reviewed/req, plan discussed w/ family, continue antibiotics Continue gentle IV fluid, his renal function continued to improve, Echocardiography pending We will continue with empiric antibiotic therapy and will repeat labs tomorrow Expecting his discharge next 24 to 48 hours. Continue Rocephin, continue Flomax Patient will need outpatient urology follow-up for further treatment for his ureteral and renal stone Discussed with bedside
[2020-03-02] MEDS: cefTRIAXone\\ROCEPHIN 1 GM in Sodium Chloride 0.9% 100 ML IVPB SCH (13:39)
--- NOTE | 2020-03-02 17:13 | EKG ---
Test Reason : Blood Pressure : / mmHG Vent. Rate : 088 BPM Atrial Rate : 088 BPM P-R Int : 168 ms QRS Dur : 158 ms QT Int : 424 ms P-R-T Axes : 024 -07 012 degrees QTc Int : 513 ms Normal sinus rhythm Right bundle branch block Left ventricular hypertrophy with repolarization abnormality Inferior infarct , age undetermined Abnormal ECG Confirmed by MELECIO CABRAL DO ([id number]), story editor LAURO SHEPPARD ([id number]) on 03/02/2020 5:13:27 PM Referred By: Confirmed By:MELECIO CABRAL DO
--- NOTE | 2020-03-02 17:43 | PDOC.NEPPN ---
- Subjective Encounter Date: 03/02/20 Subjective: Seen in follow up fpr [facility] and obstructing nephrolithiasis. Had cystoscopy with stent placement yesterday 03/01/2020. Feeling better. Having some hematuria. No fever. - Objective Vital Signs & Weight: Vital Signs (12 hours) Temp Pulse Resp BP Pulse Ox 03/02/20 08:19 97.4 F L 61 16 142/65 H 92 L Weight Weight 204 lb 3.2 oz I&O: 03/01/20 03/02/20 03/03/20 06:59 06:59 06:59 Intake Total 500 1260 Output Total 320 540 Balance 180 720 Result Diagrams: 03/01/20 03:42 03/02/20 09:21 Nephrology ROS - Medication Medications: Active Medications Generic Name Dose Route Start Last Admin Trade Name Freq PRN Reason Stop Dose Admin Amlodipine Besylate 10 mg 03/01/20 09:00 03/02/20 10:31 Amlodipine 10 Mg Tab PO 10 mg DAILY AZALIA Administration Ezetimibe 10 mg 03/01/20 21:00 03/01/20 21:18 Ezetimibe 10 Mg Tab PO 10 mg HS AZALIA Administration Finasteride 5 mg 03/01/20 09:00 03/02/20 10:31 Finasteride 5 Mg Tab PO 5 mg DAILY AZALIA Administration Ceftriaxone Sodium 1 gm/ 100 mls @ 200 mls/hr 03/01/20 12:00 03/02/20 13:39 Sodium Chloride IVPB 100 mls Q24HR AZALIA Administration Lactated Ringer's 1,000 mls @ 75 mls/hr 03/01/20 19:45 03/02/20 10:38 Lactated Ringer's IV 1,000 mls .[id number] AZALIA Administration Ondansetron HCl 4 mg 02/29/20 23:43 03/01/20 01:53 Ondansetron Pf 4 Mg/2 Ml Vial IVP 4 mg Q6H PRN Administration Nausea/Vomiting Pantoprazole Sodium 40 mg 03/01/20 09:00 03/02/20 10:31 Pantoprazole 40 Mg Tab PO 40 mg DAILY AZALIA Administration Rosuvastatin Calcium 20 mg 03/01/20 09:00 03/02/20 10:31 Rosuvastatin 20 Mg Tab PO 20 mg DAILY AZALIA Administration Sertraline HCl 200 mg 03/01/20 09:00 03/02/20 10:31 Sertraline Hcl 100 Mg Tab PO 200 mg DAILY AZALIA Administration Sodium Chloride 10 ml 03/01/20 09:00 03/02/20 10:43 Flush - Normal Saline 10 Ml Syringe IVF Not Given Q12HR AZALIA Sodium Chloride 10 ml 03/01/20 07:00 03/02/20 13:48 Flush - Normal Saline 10 Ml Syringe IVF 10 ml PRN PRN Administration Saline Flush Tamsulosin HCl 0.8 mg 03/01/20 21:00 03/01/20 21:18 Tamsulosin Hcl 0.4 Mg Cap PO 0.8 mg HS AZALIA Administration Tramadol HCl 50 mg 03/01/20 19:55 03/02/20 03:58 Tramadol Hcl 50 Mg Tab PO 50 mg Q6H PRN Administration Moderate Pain (4-6) - Exam General Appearance: awake alert Eye: anicteric sclera ENT: normocephalic atraumatic, moist mucosa Neck: supple, no JVD Respiratory: no wheezes, no rales, no ronchi, normal chest expansion Cardiovascular: RRR Gastrointestinal: soft, non-tender, non-distended, normal bowel sounds Extremities: no edema Neurological: CN's grossly intact, no focal deficits Musculoskeletal: generalized weakness PSYCH: A&O x 3 Nephrology Results - Labs Result Diagrams: 03/01/20 03:42 03/02/20 09:21 Lab results: WBC 10.4 thou/uL (4.8-10.8) 03/01/20 03:42 Hgb 13.1 g/dL (14.0-18.0) L 03/01/20 03:42 Hct 38.4 % (42.0-52.0) L 03/01/20 03:42 MCV 88.6 fL (78.0-98.0) 03/01/20 03:42 Plt Count 108 thou/uL (130-400) L 03/01/20 03:42 Neutrophils % 90.6 % (42.0-75.0) H 03/01/20 03:42 Sodium 143 mmol/L (136-145) 03/02/20 09:21 Potassium 4.0 mmol/L (3.5-5.1) 03/02/20 09:21 Chloride 109 mmol/L (98-107) H 03/02/20 09:21 Carbon Dioxide 24 mmol/L (23-31) 03/02/20 09:21 BUN 39 mg/dL (8.4-25.7) H 03/02/20 09:21 Creatinine 1.38 mg/dL (0.7-1.3) H 03/02/20 09:21 Glucose 134 mg/dL (83-110) H 03/02/20 09:21 Lactic Acid 1.0 mmol/L (0.5-2.2) 02/29/20 21:01 Calcium 8.6 mg/dL (7.8-10.44) 03/02/20 09:21 Total Bilirubin 0.9 mg/dL (0.2-1.2) 02/29/20 21:01 AST 17 U/L (5-34) 02/29/20 21:01 ALT 18 U/L (8-55) 02/29/20 21:01 Alkaline Phosphatase 90 U/L (40-110) 02/29/20 21:01 Serum Total Protein 7.4 g/dL (5.8-8.1) 02/29/20 21:01 Albumin 3.3 g/dL (3.4-4.8) L 03/02/20 09:21 Urine Ketones Negative mg/dL (Negative) 02/29/20 21:09 Urine Blood Large (Negative) A 02/29/20 21:09 Urine Nitrite Negative (Negative) 02/29/20 21:09 Ur Leukocyte Esterase Moderate (Negative) H 02/29/20 21:09 Urine RBC 11-20 HPF (0-3) A 02/29/20 21:09 Urine WBC 21-50 HPF (0-3) A 02/29/20 21:09 Ur Squamous Epith Cells 0-3 HPF (0-3) 02/29/20 21:09 Urine Bacteria 3+ HPF (None Seen) A 02/29/20 21:09 Sodium 143 mmol/L (136-145) 03/02/20 09:21 Potassium 4.0 mmol/L (3.5-5.1) 03/02/20 09:21 Chloride 109 mmol/L (98-107) H 03/02/20 09:21 Carbon Dioxide 24 mmol/L (23-31) 03/02/20 09:21 Anion Gap 14 mmol/L (10-20) 03/02/20 09:21 BUN 39 mg/dL (8.4-25.7) H 03/02/20 09:21 Creatinine 1.38 mg/dL (0.7-1.3) H 03/02/20 09:21 Glucose 134 mg/dL (83-110) H 03/02/20 09:21 Calcium 8.6 mg/dL (7.8-10.44) 03/02/20 09:21 Phosphorus 3.4 mg/dL (2.3-4.7) 03/02/20 09:21 Magnesium 2.5 mg/dL (1.6-2.6) 03/02/20 09:21 Albumin 3.3 g/dL (3.4-4.8) L 03/02/20 09:21 Nephrology AP PN - Plan ASSESSMENT: Acute kidney injury: Due to volume depletion, sepsis/pyelonephritis and obstructive uropathy. Improving with IVF and relief of obstruction. Nephrolithiasis with obstruction. S/p Cystoscopy with stent placement Presumed pyelonephritis/complicated urinary tract infection/Sepsis Hypokalemia. Chronic kidney disease stage 3. Plan Continue IVF with LR. Monitor electrolytes and renal function. Will benefit from stone analysis if retrieved and or 24 hours urine collection for stone risk analysis in 3-4 weeks. Antibiotic as per primary attending.
[2020-03-02] MEDS: Ezetimibe 10 MG TAB PO SCH (19:57)
[2020-03-02] MEDS: Tamsulosin HCl 0.4 MG CAP PO SCH (19:57)
[2020-03-03 04:19] LABS: #Lymphocytes 0.8 thou/uL (1.20-3.40); #Monocytes 0.5 thou/uL (0.11-0.59); #Neutrophils 5.2 thou/uL (1.40-6.50); %Basophils 0.2 % (0.0-1.0); %Eosinophils 0.8 % (0.0-10.0); %Lymphocytes 12.1 % (21.0-51.0); %Monocytes 7.3 % (0.0-10.0); %Neutrophils 79.6 % (42.0-75.0); Hemoglobin 12.3 g/dL (14.0-18.0); Mean Corpuscular HGB CONC 33.3 g/dL (32.0-36.0); Mean Corpuscular Volume 90.2 fL (78.0-98.0); Mean Platelet Volume 7.6 fL (7.4-10.4); Platelet Count 140 thou/uL (130-400); RBC Distribution Width 11.7 % (11.5-14.5); Red Blood Cell (RBC) Count 4.08 mill/uL (4.70-6.10); White Blood Cell (WBC) Count 6.5 thou/uL (4.8-10.8)
[2020-03-03 04:46] LABS: Anion Gap 10 mmol/L (10-20); BUN (Urea Nitrogen) 37 mg/dL (8.4-25.7); Calc. Creatinine Clearance 61 mL/min (70-130); Carbon Dioxide 27 mmol/L (23-31); Chloride 107 mmol/L (98-107); Estimated GFR-MDRD 58; Glucose 113 mg/dL (83-110); Magnesium 2.3 mg/dL (1.6-2.6); Phosphorus 2.6 mg/dL (2.3-4.7); Potassium 3.7 mmol/L (3.5-5.1); Sodium 140 mmol/L (136-145)
[2020-03-03 08:33] VITALS: BP 159/67; TEMP 97.9
[2020-03-03] MEDS: Amlodipine 10 MG TAB PO SCH (08:39)
[2020-03-03] MEDS: Rosuvastatin 20 MG TAB PO SCH (08:39)
[2020-03-03] MEDS: Finasteride 5 MG TAB PO SCH (08:39)
--- NOTE | 2020-03-03 10:47 | PDOC.DS.DS ---
Provider - Provider Date of Admission: 02/29/20 23:36 Date of Discharge: 03/03/20 Admitting Provider: Meredith Steiner MD Consultations: Nephrology, Urology Primary Care Physician: ALISA SHAH MD Course - Hospital Course Hospital Course: 84-year-old male who was admitted on March 01, 2020, patient was having nausea vomiting and abdominal pain, in the emergency room patient was found with a left-sided obstructive uropathy, he had 11 mm calculus lodged at the left proximal ureter causing left hydronephrosis, urine analysis was suspicious for UTI, his creatinine was also elevated to 1.7 on admission, his WBC count was also elevated to 12.9, chest x-ray showed no acute cardiopulmonary process Patient was admitted in the hospital, he was treated with empiric Rocephin, he was given IV fluid, urology was consulted. Nephrology was also consulted. Patient underwent cystoscopy with a left-sided ureteral stent placement, postprocedure patient was observed in hospital and he continue with IV fluid and his renal function improved to normal. Echocardiography was done during this admission which showed normal EF. On discharge be changed to Omnicef. His culture remain negative. He is afebrile and hemodynamically stable. He will continue all his previous medication upon discharge. He will follow-up with urology for further evaluation of stone. Resuscitation Status: 02/29/20 23:43 Resuscitation Status Routine Resuscitation Status: FULL: Full Resuscitation - Labs Lab Results: 03/03/20 03:58 03/03/20 03:58 Abnormal Lab Results - Last 48 hrs 03/02/20 09:21: Chloride 109 H, BUN 39 H, Creatinine 1.38 H, Albumin 3.3 L 03/03/20 03:58: BUN 37 H 03/03/20 03:58: RBC 4.08 L, Hgb 12.3 L, Hct 36.8 L, Neutrophils % 79.6 H, Lymphocytes % 12.1 L, Lymphocytes # 0.8 L Microbiology - Entire Visit 02/29/20 21:03 Venous blood - Left Arm Blood Culture - Preliminary NO GROWTH AT 48 HOURS 02/29/20 21:00 Venous blood - Right Arm Blood Culture - Preliminary NO GROWTH AT 48 HOURS 02/29/20 21:08 Urine voided Urine Culture - Preliminary NO GROWTH AT 24 HOURS - Physical Exam Vitals: Vital Signs (12 hours) Temp Pulse Resp BP Pulse Ox 03/03/20 08:39 58 L 03/03/20 08:32 97.9 F 53 L 20 159/67 H 95 Weight Weight 204 lb 3.2 oz Physical Exam: The patient was seen and examined on the day of discharge. General patient is currently alert and awake no acute distress Head normocephalic atraumatic Neck supple no JVD no meningeal signs of irritation Lungs clear to auscultation without any rhonchi rales Cardiac S1-S2 regular no murmur no gallop no rub Abdomen soft, bowel sound present, nontender nondistended organomegaly no mass Extremities no edema Neurologic nonfocal examination Problem - Problem (1) Acute kidney injury superimposed on CKD Code(s): N17.9 - ACUTE KIDNEY FAILURE, UNSPECIFIED; N18.9 - CHRONIC KIDNEY DISEASE, UNSPECIFIED Status: Acute (2) UTI (urinary tract infection) Status: Acute Qualifiers: Urinary tract infection type: acute cystitis Hematuria presence: with hematuria Qualified Code(s): N30.01 - Acute cystitis with hematuria (3) Ureteral stone with hydronephrosis Code(s): N13.2 - HYDRONEPHROSIS WITH RENAL AND URETERAL CALCULOUS OBSTRUCTION Status: Acute (4) BPH (benign prostatic hyperplasia) Code(s): N40.0 - BENIGN PROSTATIC HYPERPLASIA WITHOUT LOWER URINRY TRACT SYMP Status: Chronic Qualifiers: Lower urinary tract symptom presence: unspecified whether lower urinary tract symptoms present Qualified Code(s): N40.0 - Benign prostatic hyperplasia without lower urinary tract symptoms (5) CAD (coronary artery disease) Code(s): I25.10 - ATHSCL HEART DISEASE OF [place] CORONARY ARTERY W/O ANG PCTRS Status: Chronic Qualifiers: Coronary Disease-Associated Artery/Lesion type: [place] artery [place] vs. transplanted heart: [place] heart Associated angina: without angina Qualified Code(s): I25.10 - Atherosclerotic heart disease of [place] coronary artery without angina pectoris (6) Dyslipidemia Code(s): E78.5 - HYPERLIPIDEMIA, UNSPECIFIED Status: Chronic (7) h/o tavr Status: Chronic (8) Renal stone Status: Acute Plan - Discharge Medications Prescriptions: Cefdinir 300 mg PO Q12HR #14 capsule Home Medications: Medication Instructions Recorded Confirmed Type Amlodipine Besylate [amLODIPine 10 mg PO DAILY 09/18/15 03/01/20 History Besylate] Rosuvastatin [Crestor] 20 mg PO DAILY 09/18/15 03/01/20 History Sertraline HCl 200 mg PO DAILY 09/18/15 03/01/20 History Tamsulosin HCl 2 tab PO HS 09/18/15 03/01/20 History Levocetirizine Dihydrochloride 5 mg PO HS #0 tablet 09/19/15 03/01/20 Rx [Xyzal] Aspirin [Ecotrin Low Strength] 2 tab PO HS 01/11/19 03/01/20 History Ezetimibe [Zetia] 10 mg PO HS 01/11/19 03/01/20 History Finasteride [Proscar] 1 tab PO DAILY 01/11/19 03/01/20 History Lisinopril/Hydrochlorothiazide 1 tablet PO HS 01/11/19 03/01/20 History [Lisinopril-Hctz 20-12.5 mg Tab] ALPRAZolam [Xanax] 0.25 mg PO HS PRN 05/16/19 03/01/20 History Clopidogrel Bisulfate [Clopidogrel] 75 mg PO DAILY 03/01/20 03/01/20 History Pantoprazole [Protonix] 40 mg PO DAILY 03/01/20 03/01/20 History cloNIDine [Catapres] 1 tablet PO PRN PRN 03/01/20 03/01/20 History Cefdinir 300 mg PO Q12HR #14 capsule 03/03/20 Rx Allergies: No Known Allergies Allergy (Verified 03/01/20 02:01) - Discharge Instructions Activity:: Activity as Tolerated Nourishment:: Heart Healthy Diet Therapies:: Not Applicable Equipment/Supplies:: Not Applicable IV Therapy:: Not Applicable - Follow up Plan Referrals: Dae Begum MD [Active] - 3-4 Weeks ALISA SHAH MD [Primary Care Provider] - Disposition: HOME Quality - Care Measures CORE MEASURES:: N/A
--- NOTE | 2020-03-03 10:57 | PDOC.NEPPN ---
- Subjective Encounter Date: 03/03/20 Subjective: Seen in follow for AMOS and obstructing nephrolithiasis. S/p cystoscopy with stent placement. Feeling better. - Objective Vital Signs & Weight: Vital Signs (12 hours) Temp Pulse Resp BP Pulse Ox 03/03/20 08:39 58 L 03/03/20 08:32 97.9 F 53 L 20 159/67 H 95 Weight Weight 204 lb 3.2 oz I&O: 03/02/20 03/03/20 03/04/20 06:59 06:59 06:59 Intake Total 1260 480 Output Total 540 1000 Balance 720 -520 Result Diagrams: 03/03/20 03:58 03/03/20 03:58 Nephrology ROS - Medication Medications: Active Medications Generic Name Dose Route Start Last Admin Trade Name Freq PRN Reason Stop Dose Admin Amlodipine Besylate 10 mg 03/01/20 09:00 03/03/20 08:39 Amlodipine 10 Mg Tab PO 10 mg DAILY AZALIA Administration Ezetimibe 10 mg 03/01/20 21:00 03/02/20 19:57 Ezetimibe 10 Mg Tab PO 10 mg HS AZALIA Administration Finasteride 5 mg 03/01/20 09:00 03/03/20 08:39 Finasteride 5 Mg Tab PO 5 mg DAILY AZALIA Administration Ceftriaxone Sodium 1 gm/ 100 mls @ 200 mls/hr 03/01/20 12:00 03/02/20 13:39 Sodium Chloride IVPB 100 mls Q24HR AZALIA Administration Ondansetron HCl 4 mg 02/29/20 23:43 03/01/20 01:53 Ondansetron Pf 4 Mg/2 Ml Vial IVP 4 mg Q6H PRN Administration Nausea/Vomiting Pantoprazole Sodium 40 mg 03/01/20 09:00 03/03/20 08:41 Pantoprazole 40 Mg Tab PO 40 mg DAILY AZALIA Administration Rosuvastatin Calcium 20 mg 03/01/20 09:00 03/03/20 08:39 Rosuvastatin 20 Mg Tab PO 20 mg DAILY AZALIA Administration Sertraline HCl 200 mg 03/01/20 09:00 03/03/20 08:40 Sertraline Hcl 100 Mg Tab PO 200 mg DAILY AZALIA Administration Sodium Chloride 10 ml 03/01/20 09:00 03/03/20 08:41 Flush - Normal Saline 10 Ml Syringe IVF 10 ml Q12HR AZALIA Administration Sodium Chloride 10 ml 03/01/20 07:00 03/02/20 13:48 Flush - Normal Saline 10 Ml Syringe IVF 10 ml PRN PRN Administration Saline Flush Tamsulosin HCl 0.8 mg 03/01/20 21:00 03/02/20 19:57 Tamsulosin Hcl 0.4 Mg Cap PO 0.8 mg HS AZALIA Administration Tramadol HCl 50 mg 03/01/20 19:55 03/02/20 03:58 Tramadol Hcl 50 Mg Tab PO 50 mg Q6H PRN Administration Moderate Pain (4-6) - Exam General Appearance: awake alert Eye: anicteric sclera ENT: normocephalic atraumatic, moist mucosa Neck: supple, symmetric, no JVD Respiratory: CTAB Cardiovascular: RRR Gastrointestinal: soft, non-tender, non-distended, normal bowel sounds Extremities: no edema Neurological: CN's grossly intact, no focal deficits PSYCH: A&O x 3 Nephrology Results - Labs Result Diagrams: 03/03/20 03:58 03/03/20 03:58 Lab results: WBC 6.5 thou/uL (4.8-10.8) 03/03/20 03:58 Hgb 12.3 g/dL (14.0-18.0) L 03/03/20 03:58 Hct 36.8 % (42.0-52.0) L 03/03/20 03:58 MCV 90.2 fL (78.0-98.0) 03/03/20 03:58 Plt Count 140 thou/uL (130-400) 03/03/20 03:58 Neutrophils % 79.6 % (42.0-75.0) H 03/03/20 03:58 Sodium 140 mmol/L (136-145) 03/03/20 03:58 Potassium 3.7 mmol/L (3.5-5.1) 03/03/20 03:58 Chloride 107 mmol/L (98-107) 03/03/20 03:58 Carbon Dioxide 27 mmol/L (23-31) 03/03/20 03:58 BUN 37 mg/dL (8.4-25.7) H 03/03/20 03:58 Creatinine 1.20 mg/dL (0.7-1.3) 03/03/20 03:58 Glucose 113 mg/dL (83-110) H 03/03/20 03:58 Lactic Acid 1.0 mmol/L (0.5-2.2) 02/29/20 21:01 Calcium 8.0 mg/dL (7.8-10.44) 03/03/20 03:58 Total Bilirubin 0.9 mg/dL (0.2-1.2) 02/29/20 21:01 AST 17 U/L (5-34) 02/29/20 21:01 ALT 18 U/L (8-55) 02/29/20 21:01 Alkaline Phosphatase 90 U/L (40-110) 02/29/20 21:01 Serum Total Protein 7.4 g/dL (5.8-8.1) 02/29/20 21:01 Albumin 3.3 g/dL (3.4-4.8) L 03/02/20 09:21 Urine Ketones Negative mg/dL (Negative) 02/29/20 21:09 Urine Blood Large (Negative) A 02/29/20 21:09 Urine Nitrite Negative (Negative) 02/29/20 21:09 Ur Leukocyte Esterase Moderate (Negative) H 02/29/20 21:09 Urine RBC 11-20 HPF (0-3) A 02/29/20 21:09 Urine WBC 21-50 HPF (0-3) A 02/29/20 21:09 Ur Squamous Epith Cells 0-3 HPF (0-3) 02/29/20 21:09 Urine Bacteria 3+ HPF (None Seen) A 02/29/20 21:09 Sodium 140 mmol/L (136-145) 03/03/20 03:58 Potassium 3.7 mmol/L (3.5-5.1) 03/03/20 03:58 Chloride 107 mmol/L (98-107) 03/03/20 03:58 Carbon Dioxide 27 mmol/L (23-31) 03/03/20 03:58 Anion Gap 10 mmol/L (10-20) 03/03/20 03:58 BUN 37 mg/dL (8.4-25.7) H 03/03/20 03:58 Creatinine 1.20 mg/dL (0.7-1.3) 03/03/20 03:58 Glucose 113 mg/dL (83-110) H 03/03/20 03:58 Calcium 8.0 mg/dL (7.8-10.44) 03/03/20 03:58 Phosphorus 2.6 mg/dL (2.3-4.7) 03/03/20 03:58 Magnesium 2.3 mg/dL (1.6-2.6) 03/03/20 03:58 Albumin 3.3 g/dL (3.4-4.8) L 03/02/20 09:21 Nephrology AP PN - Plan ASSESSMENT: Acute kidney injury: Due to volume depletion, sepsis/pyelonephritis and obstructive uropathy. Resolved. Creat is back to baseline with IVF and relief of obstruction. Nephrolithiasis with obstruction. S/p Cystoscopy with stent placement Presumed pyelonephritis/complicated urinary tract infection/Sepsis Hypokalemia. Chronic kidney disease stage 3. Plan Discontinue IVF. [place] oral intake advised to get at least 2 liters of urine daily Can be discharged from nephrology point of view Outpatient follow in 3-4 weeks. Need to follow up with urologist Antibiotic as per primary attending.
--- NOTE | 2020-03-05 10:48 | PQF ---
CLINICAL DOCUMENTATION CLARIFICATION FORM: Dear Dr. Darion Salmeron Date: 03.05.20 Please exercise your independent, professional judgment in responding to the clarification form. Clinical indicators are provided on the bottom of this form for your review. Please check appropriate box(es) to clarify if the following diagnosis has been ruled in our ruled out: Sepsis [ x ] Ruled in diagnosis [ ] Continue to treat [ x ] Resolved [ ] Ruled out diagnosis [ ] Improving [ ] Cannot rule out diagnosis [ ] Other diagnosis [ ] Unable to determine For continuity of documentation, please document condition throughout progress notes and discharge summary. Thank You. To be completed by CDI/Coding staff for physician review: CLINICAL INDICATORS - SIGNS / SYMPTOMS / LABS / RESULTS AND LOCATION IN MR ED: Infected ureteral calculus P 85-101; RR 20-24; T 100.2; Sepsis alert activated LABS: WBC UA . 12.9 Moderate Leukocytes; Large bld; 3+ bacteria; 21-50 WBC H&P ([facility]): *infected ureter calculus w/ left-sided hydronephrosis; UTI; AMOS on CKD; *[place] very weak and had urine incontinence 03.01 Consult (Obi): presumed pyelonephritis/complicated UTI; nephrolithiasis w/ obstruction; sepsis 03.03 PN (Obi): AMOS D/T volume depletion, sepsis/pyelonephritis and obstructive uropathy; CKD 3; RISK FACTORS / RESULTS AND LOCATION IN MR 11.19 H&P ([facility]): *Give oral Flagyl and Levaquin by PCP for suspected diverticulitis *Left-sided obstructive uropathy and 11mm calculus lodged at left proximal ureter causing left hydronephrosis. *HX TIA, renal insufficiency, umbilical and groin hernia, kidney stones TREATMENTS / RESULTS AND LOCATION IN MR 11.19 H&P ([facility]): *IV fluids (02.28) *IV ABX (03.01 Rocephin IV) *Urologist consult (03.01) 03.02 Op Note (Shannon): Left uretral and renal stone Cystoscopy w/ left ureteral stent placement CDS Signature: Flory Jeter RN, CCDS Phone #: [phone] [email or web address] This is a permanent part of the Medical Record [facility] HOSPITALDodie
== END 2020-03-03 11:57 | disposition home or self-care (01) | DRG 854 ==
LOC: ERS 20:27 → ONC 23:36
PROVIDERS: ADMIT Internal Medicine; ATTEND Internal Medicine
PROC: 0T778DZ Dilation of Left Ureter with Intraluminal Device, Via Natural or Artificial Opening Endoscopic (ICD-10-PCS; principal; 2020-03-01)
DX: A41.9 Sepsis, unspecified organism (principal); N13.6 Pyonephrosis; N17.9 Acute kidney failure, unspecified; F32.1 Major depressive disorder, single episode, moderate; K57.92 Diverticulitis of intestine, part unspecified, without perforation or abscess without bleeding; F41.9 Anxiety disorder, unspecified; E78.00 Pure hypercholesterolemia, unspecified; I25.10 Atherosclerotic heart disease of native coronary artery without angina pectoris; N40.0 Benign prostatic hyperplasia without lower urinary tract symptoms; E87.70 Fluid overload, unspecified; N18.30 Chronic kidney disease, stage 3 unspecified; I12.9 Hypertensive chronic kidney disease with stage 1 through stage 4 chronic kidney disease, or unspecified chronic kidney disease; Z95.4 Presence of other heart-valve replacement; Z86.73 Personal history of transient ischemic attack (TIA), and cerebral infarction without residual deficits; Z95.1 Presence of aortocoronary bypass graft; Z98.890 Other specified postprocedural states; Z79.82 Long term (current) use of aspirin; Z79.899 Other long term (current) drug therapy; Z79.01 Long term (current) use of anticoagulants; E87.6 Hypokalemia; Z20.828 Contact with and (suspected) exposure to other viral communicable diseases; I35.0 Nonrheumatic aortic (valve) stenosis; R53.83 Other fatigue
CPT/HCPCS: 36415; 71045; 74177; 74420; 80048; 80053; 80061; 80069; 81001; 81015; 83605; 83735; 84100; 84443; 85025; 87040; 87086; 87635; 93005; 93306; 96365; J0696; J1100; J2405; J2704; J3010; J3490; Q9967; U0003

== ENCOUNTER 2020-03-12 06:40 | Outpatient (CLI) | payer MEDICARE, BC ==
[2020-03-12 11:41] LABS: Hemoglobin 14.1 g/dL (14.0-18.0); Mean Corpuscular HGB CONC 32.7 G/DL (32.0-36.0); Mean Corpuscular Hemoglobin 28.9 PG (27.0-33.0); Mean Corpuscular Volume 88.3 fl (80.0-100.0); Mean Platelet Volume 9.5 fl (7.4-10.4); Platelet Count 139 10x3/uL (130-400); RBC Distribution Width 12.7 % (11.5-14.5); Red Blood Cell (RBC) Count 4.88 10x6/uL (4.40-5.80); White Blood Cell (WBC) Count 4.9 10x3/uL (4.5-11.0)
[2020-03-12 11:44] LABS: Bilirubin Neg (Negative); Blood, Urine 250 (Negative); Glucose, Urine (Dipstick) Normal (Negative); Ketone, Urine 5 mg/dL (Negative); Leukocyte 100 (Negative); Nitrite Positive (Negative); Protein, Urine (Dipstick) 100 mg/dl (Neg-Trace); Urobilinogen Normal mg/dL (Less than 2)
[2020-03-12 12:02] LABS: PTT 30.5 sec (22.0-33.0); Prothrombin Time 10.7 sec (9.5-12.1)
[2020-03-12 12:03] LABS: Anion Gap 15 mmol/L (10-20); BUN (Urea Nitrogen) 29 mg/dL (8.4-25.7); Calc. Creatinine Clearance 0 mL/min (70-130); Calcium 8.4 mg/dL (7.8-10.44); Carbon Dioxide 27 mmol/L (23-31); Chloride 100 mmol/L (98-107); Estimated GFR-MDRD 48; Glucose 101 mg/dL (83-110); Potassium 3.4 mmol/L (3.5-5.1); Sodium 139 mmol/L (136-145)
[2020-03-12 12:05] LABS: RBC/HPF Greater than 50 HPF (0-3)
[2020-03-12 12:06] LABS: Bacteria/HPF 1+ HPF (None Seen); WBC/HPF 0-3 HPF (0-3)
[2020-03-13 02:34] LABS: SARS-CoV-2 MS2 Positive; SARS-CoV-2 N Gene Positive; SARS-CoV-2 S Gene Positive; SARS-CoV-2 by NAA DETECTED (NotDetected); SARS-CoV-2 orf1ab Positive
== END 2020-03-12 06:41 | disposition home or self-care (01) ==
LOC: LABBT 06:40
PROVIDERS: ATTEND Urology
DX: U07.1 COVID-19 (principal); Z01.812 Encounter for preprocedural laboratory examination; N20.2 Calculus of kidney with calculus of ureter
CPT/HCPCS: 80048; 81001; 85027; 85610; 85730; 87086; U0003; 87635

== ENCOUNTER 2020-03-17 14:45 | Emergency (ER) | payer MEDICARE, BC ==
--- NOTE | 2020-03-17 16:57 | RAD ---
Exam: Chest one view HISTORY:Chest pain. Shortness of breath. Comparison: 02/29/2020 FINDINGS: Cardiac silhouette:Cardiomegaly. Aorta: Stable atherosclerosis Pulmonary vessels: Normal Costophrenic angles: Clear LUNGS: Hyperinflation with chronic changes. Stable scarring and atelectasis. Pneumothorax: None Osseous abnormalities: None IMPRESSION: 1. Atherosclerosis and ectasia of the aorta, unchanged 2. Hyperinflation with chronic lung parenchymal changes.
== END 2020-03-17 17:42 | disposition home or self-care (01) ==
LOC: ERS 14:45
DX: U07.1 COVID-19 (principal); I10 Essential (primary) hypertension; I25.10 Atherosclerotic heart disease of native coronary artery without angina pectoris; E78.00 Pure hypercholesterolemia, unspecified; Z86.73 Personal history of transient ischemic attack (TIA), and cerebral infarction without residual deficits; Z79.899 Other long term (current) drug therapy; Z79.82 Long term (current) use of aspirin
CPT/HCPCS: 71045

== ENCOUNTER 2020-03-21 06:53 | Outpatient (CLI) | payer MEDICARE, BC | END 2020-03-21 06:54 | disposition home or self-care (01) | LOC: LABBT 06:53 | PROVIDERS: ATTEND Urology | DX: Z01.812 Encounter for preprocedural laboratory examination (principal); N20.2 Calculus of kidney with calculus of ureter | CPT/HCPCS: 87086 ==

== ENCOUNTER 2020-04-29 05:59 | Day surgery (SDC) | payer MEDICARE, BC ==
[2020-04-26 10:57] VITALS: BMI 27.0
[2020-04-29] MEDS ORDERED: cefTRIAXone\\ROCEPHIN 2 GM VIAL ONE (07:05)
[2020-04-29] MEDS ORDERED: Sodium Chloride 0.9% 100 ML ONE (07:05)
[2020-04-29] MEDS ORDERED: Iothalamate Meglumine 60% 50 ML VIAL FS ONE (07:11)
[2020-04-29] MEDS ORDERED: Fentanyl 100 MCG/2 ML VIAL ONE (07:20)
[2020-04-29 07:21] LABS: Hemoglobin 12.8 g/dL (14.0-18.0); Mean Corpuscular HGB CONC 33.5 g/dL (32.0-36.0); Mean Corpuscular Hemoglobin 29.9 pg (27.0-31.0); Mean Corpuscular Volume 89.3 fL (78.0-98.0); Mean Platelet Volume 7.1 fL (7.4-10.4); Platelet Count 152 thou/uL (130-400); RBC Distribution Width 13.1 % (11.5-14.5); Red Blood Cell (RBC) Count 4.29 mill/uL (4.70-6.10); White Blood Cell (WBC) Count 5.9 thou/uL (4.8-10.8)
[2020-04-29 07:31] LABS: Anion Gap 12 mmol/L (10-20); BUN (Urea Nitrogen) 24 mg/dL (8.4-25.7); Calc. Creatinine Clearance 65 mL/min (70-130); Calcium 8.7 mg/dL (7.8-10.44); Carbon Dioxide 28 mmol/L (23-31); Chloride 106 mmol/L (98-107); Glucose 99 mg/dL (83-110); Potassium 3.6 mmol/L (3.5-5.1); Sodium 142 mmol/L (136-145)
[2020-04-29 08:19] LABS: PTT 29.2 sec (22.9-36.1); Prothrombin Time 13.7 sec (12.0-14.7)
[2020-04-29] MEDS ORDERED: Ondansetron PF 4 MG/2 ML Vial ONE (09:12)
[2020-04-29] MEDS ORDERED: ePHEDrine 50 MG/ML VIAL ONE (09:12)
[2020-04-29] MEDS ORDERED: Lidocaine 1% PF 5 ML VIAL ONE (09:12)
[2020-04-29] MEDS ORDERED: PROPOFOL 200 MG/20 ML VIAL ONE (09:12)
[2020-04-29] MEDS ORDERED: PHENYLEPHRINE-NS 100 MCG/ML 10 ML SYRINGE ONE (09:12)
--- NOTE | 2020-04-29 10:16 | RAD ---
Retrograde pyelogram: 04/29/2020 HISTORY: Left stone retrieval FINDINGS: The initial image demonstrates a left double-J ureteral stent. Later imaging demonstrates r emoval of the stent. Later imaging demonstrates contrast media injected into the left renal collecting system. There are 2 filling defects noted within the lower pole of the left kidney which m ay signify renal calculi. There is a filling defect in the region of the ureteropelvic junction on image 5 which could be related to stone disease as well. Later imaging demonstrates placement of a do uble-J ureteral stent on the left. IMPRESSION: Left retrograde pyelogram as detailed above.
--- NOTE | 2020-04-29 11:12 | OP ---
DATE OF PROCEDURE: 04/29/2020 PREOPERATIVE DIAGNOSES: Left proximal ureteral stone and left renal stones. POSTOPERATIVE DIAGNOSIS: Left renal stones. PROCEDURES PERFORMED: Left flexible ureteroscopy, laser lithotripsy, stone retrieval, stent replacement. ANESTHETIC: General. ESTIMATED BLOOD LOSS: Less than 50. DRAINS PLACED: A 6-Togolese x 24 cm double-J stent with a string attached to it. FINDINGS: He had two stones that had migrated back into the left lower pole measuring each between 1.5 to 2 cm in size. These were broken up trying to obliterate them as much as possible. Some of the fragments were removed with a Nitinol basket. At the end of procedure, no sizable fragments were noted. He had no evidence of any extravasation or injury to the ureter, renal pelvis, or calyceal system. He had a little dilatation of the distal ureter near where it crossed the iliac vessels, but there is nothing obstructing across this point. No stones or anything like that in this region. DESCRIPTION OF PROCEDURE: After obtaining written and verbal consent from the patient and after receiving IV antibiotics, he was taken to the operating suite. He was placed in supine position on the treatment table. PlexiPulses were placed on his lower extremities and turned on. He was given a general anesthetic and oral obturator intubation. He was placed in dorsal lithotomy position and was sterilely prepped and draped. Cystoscopy was performed with a 22-Togolese sheath. This was well lubricated, passed under direct vision through the male urethra into the urinary bladder with aid of a 30-degree lens of video camera and monitor. The bladder was filled and emptied a couple of times, and the distal end of the left double-J stent was grasped and brought out through the urethral meatus. A guidewire was fed up through this into the region of renal pelvis. The stent was removed over the guidewire and discarded. A dual-lumen catheter was brought in and placed up and over the guidewire a couple of centimeters up the left ureteral orifice, contrast was injected up the left ureter, there was no evidence of any ureteral stones, there was a little dilatation of left distal ureter with no filling defects. There were two stone shadows in the lower pole calyceal system. We then fed a blue stiff wire up the 2nd port of the dual-lumen catheter, removed the dual-lumen catheter, ureteral sheath with obturator was brought in and placed over the blue stiff wire and up to the region of the renal pelvis. The obturator and guidewire were removed, and a flexible ureteroscope was brought in and directed into the lower pole calyceal system. We used the holmium laser to try to destroy these stones as much as we could. We did pull some of them out a little bit close to the renal pelvis once we could get a little wire on part of them to make it little easier to fragment them. We then used a Nitinol basket to remove some of the remaining fragments. We inspected the rest of the calyceal system and did not see any sizable stone present in any area. As we backed the ureteral sheath out, we looked at the ureter along its course and found no evidence of any stones, tumors, or injury. We backloaded our remaining green guidewire through our cystoscope, passed a Pollack catheter up this, shot contrast down that showed no extravasation and contrast going down the ureter. The guidewires were placed. The stent was placed then over the guidewire and pushed up into place with aid of a pusher, so its proximal end coiled in the renal pelvis and its distal end coiled in the wire when the wire was removed. The bladder was drained. The instruments were removed. The string was cut 2 to 3 inches distal to the urethral meatus. He was taken out of the dorsal lithotomy position. He was awakened, extubated, and taken by stretcher to recovery room. Job ID: [id number]
[2020-04-29] MEDS ORDERED: HYDROcodone/Acetaminophen 5/325 mg Tablet ONE (11:55)
[2020-05-06 16:13] LABS: Color Brown (.); Stone Weight 53 mg (.); Uric Acid 100 % (.)
== END 2020-04-29 17:20 | disposition home or self-care (01) ==
LOC: SDC 05:59
PROVIDERS: ATTEND Urology
PROC: 0TC48ZZ Extirpation of Matter from Left Kidney Pelvis, Via Natural or Artificial Opening Endoscopic (ICD-10-PCS; principal; 2020-04-29)
PROC: 0T778DZ Dilation of Left Ureter with Intraluminal Device, Via Natural or Artificial Opening Endoscopic (ICD-10-PCS; 2020-04-29)
DX: N20.0 Calculus of kidney (principal); F41.9 Anxiety disorder, unspecified; N18.9 Chronic kidney disease, unspecified; I25.10 Atherosclerotic heart disease of native coronary artery without angina pectoris; Z79.02 Long term (current) use of antithrombotics/antiplatelets; Z79.2 Long term (current) use of antibiotics; Z79.82 Long term (current) use of aspirin; Z79.899 Other long term (current) drug therapy; Z95.1 Presence of aortocoronary bypass graft
CPT/HCPCS: 74420; 80048; 82365; 85027; 85610; 85730; 88300; J0696; J2405; J2704; J3010; J3490

== ENCOUNTER 2020-10-02 18:50 | Emergency (ER) | payer MEDICARE, BC ==
[2020-10-02 19:19] LABS: #Lymphocytes 0.5 thou/uL (1.20-3.40); #Monocytes 0.8 thou/uL (0.11-0.59); #Neutrophils 6.3 thou/uL (1.40-6.50); %Eosinophils 0.2 % (0.0-10.0); %Monocytes 10.4 % (0.0-10.0); %Neutrophils 82.5 % (42.0-75.0); Hemoglobin 12.8 g/dL (14.0-18.0); Mean Corpuscular HGB CONC 33.8 g/dL (32.0-36.0); Mean Corpuscular Volume 88.7 fL (78.0-98.0); Mean Platelet Volume 7.5 fL (7.4-10.4); Platelet Count 140 thou/uL (130-400); RBC Distribution Width 12.4 % (11.5-14.5); Red Blood Cell (RBC) Count 4.27 mill/uL (4.70-6.10); White Blood Cell (WBC) Count 7.7 thou/uL (4.8-10.8)
[2020-10-02 19:26] LABS: Bilirubin Negative (Negative); Blood, Urine Negative (Negative); Clarity Clear (Clear); Glucose, Urine (Dipstick) Normal (Negative); Ketone, Urine Negative (Negative); Leukocyte Negative Leu/uL (Negative); Nitrite Negative (Negative); Protein, Urine (Dipstick) 20 mg/dL (Neg-Trace); Specific Gravity, Urine 1.026 (1.002-1.036); Urobilinogen Normal mg/dL (Less than 2); pH, Urine 5.5 (5.0-9.0)
[2020-10-02 19:39] LABS: ALT (SGPT) 24 U/L (8-55); AST (SGOT) 20 U/L (5-34); Albumin 3.7 g/dL (3.4-4.8); Alkaline Phosphatase 73 U/L (40-110); Anion Gap 13 mmol/L (10-20); BUN (Urea Nitrogen) 30 mg/dL (8.4-25.7); Bilirubin, Total 0.8 mg/dL (0.2-1.2); Calc. Creatinine Clearance 0 mL/min (70-130); Calcium 8.7 mg/dL (7.8-10.44); Carbon Dioxide 27 mmol/L (23-31); Chloride 104 mmol/L (98-107); Globulin 2.8 g/dL (2.4-3.5); Glucose 122 mg/dL (83-110); Potassium 3.6 mmol/L (3.5-5.1); Protein, Total 6.5 g/dL (5.8-8.1); Sodium 140 mmol/L (136-145)
[2020-10-02] MEDS ORDERED: Ondansetron PF 4 MG/2 ML Vial ONE (22:26)
[2020-10-02] MEDS ORDERED: Morphine 4 MG/ML VIAL ONE (22:26)
== END 2020-10-03 00:15 | disposition home or self-care (01) ==
LOC: ERS 18:50
DX: R10.9 Unspecified abdominal pain (principal); Z87.442 Personal history of urinary calculi; Z86.73 Personal history of transient ischemic attack (TIA), and cerebral infarction without residual deficits; I25.10 Atherosclerotic heart disease of native coronary artery without angina pectoris; E78.00 Pure hypercholesterolemia, unspecified
CPT/HCPCS: 36415; 74177; 80053; 81003; 83605; 85025; 85652; 86140; 87040; 87077; 87086; 87149; 87186; 96374; 96375; J2270; J2405

== ENCOUNTER 2020-10-05 23:41 | Inpatient (IN) | payer MEDICARE, BC ==
[2020-10-06] MEDS ORDERED: Cefepime 2 GM VIAL ONE (02:43)
[2020-10-06 02:59] LABS: #Lymphocytes 0.6 thou/uL (1.20-3.40); #Monocytes 0.4 thou/uL (0.11-0.59); #Neutrophils 5.9 thou/uL (1.40-6.50); %Eosinophils 0.4 % (0.0-10.0); %Lymphocytes 8.8 % (21.0-51.0); %Monocytes 6.4 % (0.0-10.0); %Neutrophils 84.4 % (42.0-75.0); Hemoglobin 11.4 g/dL (14.0-18.0); Mean Corpuscular Hemoglobin 30.9 pg (27.0-31.0); Mean Corpuscular Volume 88.3 fL (78.0-98.0); Mean Platelet Volume 7.1 fL (7.4-10.4); Platelet Count 167 thou/uL (130-400); RBC Distribution Width 12.2 % (11.5-14.5); Red Blood Cell (RBC) Count 3.71 mill/uL (4.70-6.10); White Blood Cell (WBC) Count 6.9 thou/uL (4.8-10.8)
[2020-10-06 03:19] LABS: ALT (SGPT) 23 U/L (8-55); AST (SGOT) 20 U/L (5-34); Albumin 3.3 g/dL (3.4-4.8); Alkaline Phosphatase 63 U/L (40-110); Anion Gap 20 mmol/L (10-20); BUN (Urea Nitrogen) 24 mg/dL (8.4-25.7); Bilirubin, Total 0.6 mg/dL (0.2-1.2); Calc. Creatinine Clearance 0 mL/min (70-130); Calcium 8.5 mg/dL (7.8-10.44); Carbon Dioxide 16 mmol/L (23-31); Chloride 103 mmol/L (98-107); Globulin 2.8 g/dL (2.4-3.5); Glucose 106 mg/dL (83-110); Potassium 3.7 mmol/L (3.5-5.1); Protein, Total 6.1 g/dL (5.8-8.1); Sodium 135 mmol/L (136-145)
[2020-10-06 03:55] LABS: Bilirubin Negative (Negative); Blood, Urine Negative (Negative); Clarity Clear (Clear); Glucose, Urine (Dipstick) Normal (Negative); Ketone, Urine Negative (Negative); Leukocyte Negative Leu/uL (Negative); Nitrite Negative (Negative); Protein, Urine (Dipstick) Negative (Neg-Trace); Specific Gravity, Urine 1.013 (1.002-1.036); Urobilinogen Normal mg/dL (Less than 2)
[2020-10-06] MEDS ORDERED: Vancomycin 1 GM/200 ML BAG ONE (04:18)
[2020-10-06] MEDS ORDERED: Ondansetron PF 4 MG/2 ML Vial IVP PRN (05:44)
[2020-10-06] MEDS ORDERED: Acetaminophen 325 MG TAB PO PRN (05:44)
[2020-10-06 06:10] VITALS: BMI 28.0
[2020-10-06 06:10] LABS: SARS-CoV-2 NAA Rapid Test Not Detected (NotDetected)
[2020-10-06] MEDS: Vancomycin HCl 500 MG in Sodium Chloride 0.9% 100 ML IVPB SCH ×2 (06:28→06:42)
[2020-10-06] MEDS: Rosuvastatin 20 MG TAB PO SCH (20:20)
[2020-10-06] MEDS: Ezetimibe 10 MG TAB PO SCH (20:20)
[2020-10-06] MEDS: Polyethylene Glycol 3350 17 GM Packet PO PRN (20:20)
[2020-10-06] MEDS: Tamsulosin HCl 0.4 MG CAP PO SCH (20:20)
[2020-10-06] MEDS: traMADol HCl 50 MG TAB PO PRN (20:21)
[2020-10-07] MEDS ORDERED: Vancomycin 1.5 GRAM/300 ML BAG 1.5 GM in Premix Bag 1 BAG IVPB SCH (04:00)
[2020-10-07 06:39] LABS: #Eosinphils 0.1 thou/uL (0.0-0.7); #Lymphocytes 1.1 thou/uL (1.20-3.40); #Monocytes 0.5 thou/uL (0.11-0.59); #Neutrophils 4.7 thou/uL (1.40-6.50); %Basophils 0.1 % (0.0-1.0); %Eosinophils 0.9 % (0.0-10.0); %Lymphocytes 17.4 % (21.0-51.0); %Monocytes 8.1 % (0.0-10.0); %Neutrophils 73.4 % (42.0-75.0); Hemoglobin 11.1 g/dL (14.0-18.0); Mean Corpuscular HGB CONC 34.1 g/dL (32.0-36.0); Mean Corpuscular Hemoglobin 30.3 pg (27.0-31.0); Mean Corpuscular Volume 88.8 fL (78.0-98.0); Mean Platelet Volume 6.9 fL (7.4-10.4); Platelet Count 187 thou/uL (130-400); RBC Distribution Width 12.1 % (11.5-14.5); Red Blood Cell (RBC) Count 3.68 mill/uL (4.70-6.10); White Blood Cell (WBC) Count 6.3 thou/uL (4.8-10.8)
[2020-10-07 06:58] LABS: Anion Gap 12 mmol/L (10-20); BUN (Urea Nitrogen) 23 mg/dL (8.4-25.7); Calc. Creatinine Clearance 63 mL/min (70-130); Calcium 8.7 mg/dL (7.8-10.44); Carbon Dioxide 28 mmol/L (23-31); Chloride 103 mmol/L (98-107); Glucose 96 mg/dL (83-110); Potassium 4.1 mmol/L (3.5-5.1); Sodium 139 mmol/L (136-145)
[2020-10-07] MEDS: Finasteride 5 MG TAB PO SCH (08:14)
[2020-10-07] MEDS: traMADol HCl 50 MG TAB PO PRN (08:14)
[2020-10-07] MEDS: Aspirin 81 mg Enteric Coated Tablet PO SCH (08:14)
[2020-10-07] MEDS: Clopidogrel Bisulfate 75 MG TAB PO SCH (08:15)
[2020-10-07] MEDS: Polyethylene Glycol 3350 17 GM Packet PO PRN (11:42)
[2020-10-07] MEDS ORDERED: Milk Of Magnesia 30 ML UDCUP PO PRN (12:40)
[2020-10-07] MEDS ORDERED: Lisinopril/Hydrochlorothiazide 20 mg/12.5 mg Tablet PO SCH (12:45)
[2020-10-07] MEDS: ceFAZolin 1 GM/D5W 1 GM in Premix Bag 1 BAG IVPB SCH ×2 (14:02→21:30)
[2020-10-07] MEDS: Lisinopril/Hydrochlorothiazide 20 mg/12.5 mg Tablet PO SCH (20:28)
[2020-10-07] MEDS: Rosuvastatin 20 MG TAB PO SCH (20:28)
[2020-10-07] MEDS: Ezetimibe 10 MG TAB PO SCH (20:29)
[2020-10-07] MEDS: Tamsulosin HCl 0.4 MG CAP PO SCH (20:29)
[2020-10-08 02:57] LABS: #Eosinphils 0.1 thou/uL (0.0-0.7); #Lymphocytes 1.1 thou/uL (1.20-3.40); #Monocytes 0.5 thou/uL (0.11-0.59); #Neutrophils 4.6 thou/uL (1.40-6.50); %Basophils 0.5 % (0.0-1.0); %Eosinophils 1.9 % (0.0-10.0); %Lymphocytes 17.8 % (21.0-51.0); %Monocytes 7.5 % (0.0-10.0); %Neutrophils 72.2 % (42.0-75.0); Hemoglobin 11.8 g/dL (14.0-18.0); Mean Corpuscular HGB CONC 34.5 g/dL (32.0-36.0); Mean Corpuscular Hemoglobin 30.3 pg (27.0-31.0); Mean Corpuscular Volume 87.9 fL (78.0-98.0); Mean Platelet Volume 6.4 fL (7.4-10.4); Platelet Count 201 thou/uL (130-400); Red Blood Cell (RBC) Count 3.89 mill/uL (4.70-6.10); White Blood Cell (WBC) Count 6.4 thou/uL (4.8-10.8)
[2020-10-08 03:17] LABS: Vancomycin, Trough 8.7 ug/mL
[2020-10-08] MEDS: Vancomycin 1 GM in Premix Bag 1 BAG IVPB SCH ×2 (03:33→15:19)
[2020-10-08 03:36] LABS: Anion Gap 12 mmol/L (10-20); BUN (Urea Nitrogen) 24 mg/dL (8.4-25.7); Calc. Creatinine Clearance 60 mL/min (70-130); Calcium 8.8 mg/dL (7.8-10.44); Carbon Dioxide 28 mmol/L (23-31); Chloride 101 mmol/L (98-107); Glucose 97 mg/dL (83-110); Sodium 137 mmol/L (136-145)
[2020-10-08] MEDS: traMADol HCl 50 MG TAB PO PRN ×3 (03:36→20:10)
[2020-10-08] MEDS: ceFAZolin 1 GM/D5W 1 GM in Premix Bag 1 BAG IVPB SCH ×3 (05:44→21:30)
[2020-10-08] MEDS: Clopidogrel Bisulfate 75 MG TAB PO SCH (08:18)
[2020-10-08] MEDS: Lisinopril/Hydrochlorothiazide 20 mg/12.5 mg Tablet PO SCH ×2 (08:18→20:11)
[2020-10-08] MEDS: Aspirin 81 mg Enteric Coated Tablet PO SCH (08:18)
[2020-10-08] MEDS: Finasteride 5 MG TAB PO SCH (08:18)
[2020-10-08] MEDS ORDERED: Amlodipine 10 MG TAB PO SCH (17:30)
[2020-10-08] MEDS: Ezetimibe 10 MG TAB PO SCH (20:09)
[2020-10-08] MEDS: Tamsulosin HCl 0.4 MG CAP PO SCH (20:11)
[2020-10-08] MEDS: Rosuvastatin 20 MG TAB PO SCH (20:11)
[2020-10-08] MEDS: Polyethylene Glycol 3350 17 GM Packet PO PRN (20:15)
[2020-10-09] MEDS: ALPRAZolam 0.25 MG TAB PO PRN (00:14)
[2020-10-09] MEDS: Vancomycin 1 GM in Premix Bag 1 BAG IVPB SCH ×2 (03:41→16:31)
[2020-10-09] MEDS: traMADol HCl 50 MG TAB PO PRN ×2 (05:28→20:17)
[2020-10-09] MEDS: ceFAZolin 1 GM/D5W 1 GM in Premix Bag 1 BAG IVPB SCH ×3 (05:29→20:15)
[2020-10-09 07:59] LABS: #Eosinphils 0.1 thou/uL (0.0-0.7); #Lymphocytes 1.1 thou/uL (1.20-3.40); #Monocytes 0.4 thou/uL (0.11-0.59); #Neutrophils 4.3 thou/uL (1.40-6.50); %Eosinophils 1.9 % (0.0-10.0); %Lymphocytes 18.3 % (21.0-51.0); %Monocytes 7.2 % (0.0-10.0); %Neutrophils 72.6 % (42.0-75.0); Hemoglobin 12.1 g/dL (14.0-18.0); Mean Corpuscular Hemoglobin 31.2 pg (27.0-31.0); Mean Platelet Volume 6.7 fL (7.4-10.4); Platelet Count 232 thou/uL (130-400); RBC Distribution Width 12.1 % (11.5-14.5); Red Blood Cell (RBC) Count 3.89 mill/uL (4.70-6.10); White Blood Cell (WBC) Count 5.9 thou/uL (4.8-10.8)
[2020-10-09 08:23] LABS: Anion Gap 12 mmol/L (10-20); BUN (Urea Nitrogen) 19 mg/dL (8.4-25.7); Calc. Creatinine Clearance 67 mL/min (70-130); Carbon Dioxide 29 mmol/L (23-31); Chloride 101 mmol/L (98-107); Glucose 95 mg/dL (83-110); Potassium 3.7 mmol/L (3.5-5.1); Sodium 138 mmol/L (136-145)
[2020-10-09] MEDS: Lisinopril/Hydrochlorothiazide 20 mg/12.5 mg Tablet PO SCH ×2 (09:16→20:15)
[2020-10-09] MEDS: Clopidogrel Bisulfate 75 MG TAB PO SCH (09:16)
[2020-10-09] MEDS: Aspirin 81 mg Enteric Coated Tablet PO SCH (09:16)
[2020-10-09] MEDS: Amlodipine 10 MG TAB PO SCH (09:16)
[2020-10-09] MEDS: Finasteride 5 MG TAB PO SCH (09:16)
[2020-10-09 15:28] LABS: Vancomycin, Trough 19.4 ug/mL
[2020-10-09] MEDS: Ezetimibe 10 MG TAB PO SCH (20:15)
[2020-10-09] MEDS: Rosuvastatin 20 MG TAB PO SCH (20:15)
[2020-10-09] MEDS: Tamsulosin HCl 0.4 MG CAP PO SCH (20:15)
[2020-10-09] MEDS: Polyethylene Glycol 3350 17 GM Packet PO PRN (20:18)
[2020-10-10] MEDS: Vancomycin 1 GM in Premix Bag 1 BAG IVPB SCH ×2 (03:17→16:37)
[2020-10-10] MEDS: ceFAZolin 1 GM/D5W 1 GM in Premix Bag 1 BAG IVPB SCH ×3 (05:11→21:03)
[2020-10-10] MEDS ORDERED: Lidocaine 1% PF 5 ML VIAL ONE ×2 (09:52→10:30)
[2020-10-10] MEDS ORDERED: PROPOFOL 20 ML ONE (09:52)
[2020-10-10] MEDS ORDERED: PROPOFOL 200 MG/20 ML VIAL ONE (10:30)
[2020-10-10] MEDS: Aspirin 81 mg Enteric Coated Tablet PO SCH (11:47)
[2020-10-10] MEDS: Lisinopril/Hydrochlorothiazide 20 mg/12.5 mg Tablet PO SCH ×2 (11:47→21:04)
[2020-10-10] MEDS: Clopidogrel Bisulfate 75 MG TAB PO SCH (11:48)
[2020-10-10] MEDS: Amlodipine 10 MG TAB PO SCH (11:48)
[2020-10-10] MEDS: Finasteride 5 MG TAB PO SCH (11:48)
[2020-10-10 19:41] VITALS: TEMP 98.2
[2020-10-10] MEDS: Ezetimibe 10 MG TAB PO SCH (21:04)
[2020-10-10] MEDS: Rosuvastatin 20 MG TAB PO SCH (21:04)
[2020-10-10] MEDS: ALPRAZolam 0.25 MG TAB PO PRN (21:04)
[2020-10-10] MEDS: Tamsulosin HCl 0.4 MG CAP PO SCH (21:04)
[2020-10-11] MEDS: Vancomycin 1 GM in Premix Bag 1 BAG IVPB SCH (03:36)
[2020-10-11] MEDS: ceFAZolin 1 GM/D5W 1 GM in Premix Bag 1 BAG IVPB SCH (05:52)
[2020-10-11] MEDS: Amlodipine 10 MG TAB PO SCH (08:21)
[2020-10-11] MEDS: Lisinopril/Hydrochlorothiazide 20 mg/12.5 mg Tablet PO SCH (08:21)
[2020-10-11] MEDS: Aspirin 81 mg Enteric Coated Tablet PO SCH (08:21)
[2020-10-11] MEDS: Finasteride 5 MG TAB PO SCH (08:21)
[2020-10-11] MEDS: Clopidogrel Bisulfate 75 MG TAB PO SCH (08:22)
[2020-10-11 12:29] VITALS: BP 127/69
[2020-10-11] MEDS ORDERED: cefTRIAXone\\ROCEPHIN 1 GM in Sodium Chloride 0.9% 100 ML IVPB SCH (12:45)
[2020-10-11 15:22] LABS: Vancomycin, Trough 18.8 ug/mL
== END 2020-10-11 16:50 | disposition home health service (06) | DRG 289 ==
LOC: ERS 23:41 → T4-B 10-06 04:16
PROVIDERS: ADMIT Internal Medicine; ATTEND Internal Medicine
PROC: B24BZZ4 Ultrasonography of Heart with Aorta, Transesophageal (ICD-10-PCS; principal; 2020-10-10)
PROC: 02HV33Z Insertion of Infusion Device into Superior Vena Cava, Percutaneous Approach (ICD-10-PCS; 2020-10-11)
PROC: B548ZZA Ultrasonography of Superior Vena Cava, Guidance (ICD-10-PCS; 2020-10-11)
DX: I33.0 Acute and subacute infective endocarditis (principal); R78.81 Bacteremia; Z20.822 Contact with and (suspected) exposure to COVID-19; I08.1 Rheumatic disorders of both mitral and tricuspid valves; I70.0 Atherosclerosis of aorta; I25.10 Atherosclerotic heart disease of native coronary artery without angina pectoris; E78.5 Hyperlipidemia, unspecified; E78.00 Pure hypercholesterolemia, unspecified; F41.9 Anxiety disorder, unspecified; N40.0 Benign prostatic hyperplasia without lower urinary tract symptoms; G89.29 Other chronic pain; M54.5 Low back pain; D64.9 Anemia, unspecified; K59.00 Constipation, unspecified; I10 Essential (primary) hypertension; B95.5 Unspecified streptococcus as the cause of diseases classified elsewhere; Z95.2 Presence of prosthetic heart valve; Z86.73 Personal history of transient ischemic attack (TIA), and cerebral infarction without residual deficits; Z95.1 Presence of aortocoronary bypass graft; Z82.49 Family history of ischemic heart disease and other diseases of the circulatory system; Z82.3 Family history of stroke; Z83.3 Family history of diabetes mellitus; Z87.891 Personal history of nicotine dependence; Z87.442 Personal history of urinary calculi
CPT/HCPCS: 0240U; 36415; 36569; 71045; 72148; 74177; 80048; 80053; 80202; 81001; 81003; 83605; 85025; 85652; 86140; 87040; 87077; 87086; 87149; 87186; 93306; 93312; 96365; 96367; 96374; 96375; C1751; J0690; J0692; J0696; J2270; J2405; J2704; J3370; J3490; Q9967

== ENCOUNTER 2021-03-28 09:58 | Outpatient (CLI) | payer MEDICARE, BC | END 2021-03-28 09:59 | disposition home or self-care (01) | LOC: NM 09:58 | PROVIDERS: ATTEND Urology | DX: C61 Malignant neoplasm of prostate (principal); C79.51 Secondary malignant neoplasm of bone | CPT/HCPCS: 78306; A9503 ==

== ENCOUNTER 2022-06-08 10:45 | Inpatient (IN) | payer MEDICARE, BC ==
[2022-06-08 11:33] LABS: #Eosinphils 0.1 thou/uL (0.0-0.7); #Lymphocytes 0.7 thou/uL (1.20-3.40); #Monocytes 0.5 thou/uL (0.11-0.59); #Neutrophils 5.3 thou/uL (1.40-6.50); %Basophils 0.2 % (0.0-1.0); %Lymphocytes 10.7 % (21.0-51.0); %Monocytes 7.2 % (0.0-10.0); %Neutrophils 79.9 % (42.0-75.0); Hemoglobin 14.2 g/dL (14.0-18.0); Mean Corpuscular HGB CONC 32.5 g/dL (32.0-36.0); Mean Corpuscular Volume 95.4 fl (78.0-98.0); Mean Platelet Volume 9.2 fL (7.4-10.4); Platelet Count 129 10x3/uL (130-400); RBC Distribution Width 12.3 % (11.5-14.5); Red Blood Cell (RBC) Count 4.56 mill/uL (4.70-6.10); White Blood Cell (WBC) Count 6.6 10x3/uL (4.8-10.8)
[2022-06-08 11:53] LABS: ALT (SGPT) Less than 7 U/L (8-55); AST (SGOT) 16 U/L (5-34); Albumin 4.1 g/dL (3.4-4.8); Alkaline Phosphatase 61 U/L (40-110); Anion Gap 15 mmol/L (10-20); BUN (Urea Nitrogen) 114 mg/dL (8.4-25.7); Bilirubin, Total 0.6 mg/dL (0.2-1.2); Calc. Creatinine Clearance 0 mL/min (70-130); Calcium 9.7 mg/dL (7.8-10.44); Carbon Dioxide 23 mmol/L (23-31); Chloride 127 mmol/L (98-107); Estimated GFR 16; Globulin 2.9 g/dL (2.4-3.5); Glucose 104 mg/dL (83-110); Lipase 49 U/L (8-78); Potassium 5.1 mmol/L (3.5-5.1)
[2022-06-08 11:57] LABS: Sodium 160 mmol/L (136-145)
[2022-06-08 12:14] LABS: CKMB 1.8 ng/mL (0-6.6)
[2022-06-08] MEDS ORDERED: Ondansetron PF 4 MG/2 ML Vial IVP PRN (14:03)
[2022-06-08] MEDS ORDERED: Acetaminophen 650 MG Suppository PR PRN (14:03)
[2022-06-08] MEDS ORDERED: Ondansetron ODT 4 MG TAB PO PRN (14:03)
[2022-06-08] MEDS ORDERED: Sodium Chloride 0.9% 1,000 ML IV SCH (14:15)
[2022-06-08] MEDS ORDERED: Dextrose 5% in Water 1,000 ML IV SCH (14:15)
[2022-06-08 15:15] LABS: Sodium 157 mmol/L (136-145)
[2022-06-08 15:27] LABS: CKMB 3.8 ng/mL (0-6.6)
[2022-06-08 18:06] VITALS: BMI 24.4
[2022-06-08 19:51] LABS: Anion Gap 23 mmol/L (10-20); BUN (Urea Nitrogen) 108 mg/dL (8.4-25.7); Calc. Creatinine Clearance 19 mL/min (70-130); Calcium 9.7 mg/dL (7.8-10.44); Carbon Dioxide 12 mmol/L (23-31); Chloride 131 mmol/L (98-107); Estimated GFR 18; Glucose 113 mg/dL (83-110); Potassium 5.3 mmol/L (3.5-5.1); Sodium 161 mmol/L (136-145)
[2022-06-08] MEDS: Sodium Bicarbonate Tab 325 MG TAB PO SCH (21:02)
[2022-06-08] MEDS: Dextrose 5% in Water 1,000 ML IV SCH (21:02)
[2022-06-08] MEDS: Heparin 5,000 UNITS/ML VIAL SC SCH (21:02)
[2022-06-08 22:25] LABS: Anion Gap 17 mmol/L (10-20); BUN (Urea Nitrogen) 109 mg/dL (8.4-25.7); Calc. Creatinine Clearance 20 mL/min (70-130); Calcium 8.8 mg/dL (7.8-10.44); Carbon Dioxide 18 mmol/L (23-31); Chloride 126 mmol/L (98-107); Estimated GFR 20; Glucose 150 mg/dL (83-110); Potassium 4.2 mmol/L (3.5-5.1)
[2022-06-08 22:36] LABS: Sodium 157 mmol/L (136-145)
[2022-06-09 04:50] LABS: Anion Gap 13 mmol/L (10-20); BUN (Urea Nitrogen) 101 mg/dL (8.4-25.7); Calc. Creatinine Clearance 22 mL/min (70-130); Carbon Dioxide 24 mmol/L (23-31); Chloride 122 mmol/L (98-107); Estimated GFR 21; Glucose 115 mg/dL (83-110); Potassium 3.9 mmol/L (3.5-5.1)
[2022-06-09 04:54] LABS: Sodium 155 mmol/L (136-145)
[2022-06-09 05:13] LABS: #Eosinphils 0.1 thou/uL (0.0-0.7); #Lymphocytes 0.8 thou/uL (1.20-3.40); #Monocytes 0.4 thou/uL (0.11-0.59); #Neutrophils 2.8 thou/uL (1.40-6.50); %Eosinophils 2.3 % (0.0-10.0); %Lymphocytes 18.7 % (21.0-51.0); %Monocytes 8.8 % (0.0-10.0); %Neutrophils 70.2 % (42.0-75.0); Hemoglobin 12.1 g/dL (14.0-18.0); Mean Corpuscular HGB CONC 32.4 g/dL (32.0-36.0); Mean Corpuscular Hemoglobin 31.3 pg (27.0-31.0); Mean Corpuscular Volume 96.3 fl (78.0-98.0); Mean Platelet Volume 8.6 fL (7.4-10.4); Platelet Count 85 10x3/uL (130-400); Platelet Morphology Comment Appears Decreased; RBC Distribution Width 12.4 % (11.5-14.5); Red Blood Cell (RBC) Count 3.87 mill/uL (4.70-6.10)
[2022-06-09] MEDS: Dextrose 5% in Water 1,000 ML IV SCH ×4 (05:16→21:16)
[2022-06-09] MEDS ORDERED: Sodium Chloride 0.45% 1,000 ML IV SCH (08:00)
[2022-06-09] MEDS ORDERED: Aspirin 81 mg Enteric Coated Tablet PO SCH (09:00)
[2022-06-09] MEDS: Carbidopa/Levodopa 25-100 mg Tablet PO SCH ×3 (10:17→21:14)
[2022-06-09] MEDS: Aspirin 81 mg Enteric Coated Tablet PO SCH (10:17)
[2022-06-09] MEDS: Sertraline 100 MG TAB PO SCH (10:17)
[2022-06-09] MEDS: Sodium Bicarbonate Tab 325 MG TAB PO SCH ×3 (10:35→21:14)
[2022-06-09 10:53] LABS: Anion Gap 14 mmol/L (10-20); BUN (Urea Nitrogen) 91 mg/dL (8.4-25.7); CK (CPK) 964 U/L (30-200); Calc. Creatinine Clearance 22 mL/min (70-130); Calcium 9.4 mg/dL (7.8-10.44); Carbon Dioxide 22 mmol/L (23-31); Chloride 120 mmol/L (98-107); Estimated GFR 23; Glucose 101 mg/dL (83-110); Potassium 4.2 mmol/L (3.5-5.1)
[2022-06-09 10:56] LABS: Sodium 152 mmol/L (136-145)
[2022-06-09] MEDS: Sodium Chloride 0.45% 1,000 ML IV SCH ×2 (12:56→21:15)
[2022-06-09] MEDS: Heparin 5,000 UNITS/ML VIAL SC SCH ×2 (13:14→21:14)
[2022-06-09] MEDS ORDERED: Carbidopa/Levodopa 25-100 mg Tablet PO SCH (15:15)
[2022-06-09 16:06] LABS: Bacteria/HPF None Seen HPF (None Seen); Bilirubin Negative (Negative); Blood, Urine Negative (Negative); CAUTI Indications for Culture Alt mental st,lethar; Clarity Clear (Clear); Glucose, Urine (Dipstick) Normal (Negative); Ketone, Urine Negative (Negative); Leukocyte Negative Leu/uL (Negative); Nitrite Negative (Negative); Protein, Urine (Dipstick) Negative (Neg-Trace); RBC/HPF 0-3 HPF (0-3); Specific Gravity, Urine 1.018 (1.002-1.036); Squamous Epithelial None Seen HPF (0-3); Urobilinogen Normal mg/dL (Less than 2); WBC/HPF None Seen HPF (0-3)
[2022-06-09 16:08] LABS: Urine Culture Reflex No No
[2022-06-09 16:14] LABS: Anion Gap 14 mmol/L (10-20); BUN (Urea Nitrogen) 81 mg/dL (8.4-25.7); CK (CPK) 614 U/L (30-200); Calc. Creatinine Clearance 25 mL/min (70-130); Calcium 9.2 mg/dL (7.8-10.44); Carbon Dioxide 21 mmol/L (23-31); Chloride 119 mmol/L (98-107); Estimated GFR 27; Glucose 104 mg/dL (83-110); Sodium 150 mmol/L (136-145)
[2022-06-09 16:43] LABS: Creatinine, Urine 68.93 mg/dL (63-166); Protein, Urine Random Quant Less than 10 mg/dL (1-14); Sodium, Urine 107 mmol/L (Not Available); Urea Nitrogen, Random Urine 959 mg/dl
[2022-06-09] MEDS: Ezetimibe 10 MG TAB PO SCH (18:03)
[2022-06-09 22:22] LABS: Anion Gap 11 mmol/L (10-20); BUN (Urea Nitrogen) 76 mg/dL (8.4-25.7); CK (CPK) 484 U/L (30-200); Calc. Creatinine Clearance 27 mL/min (70-130); Calcium 8.7 mg/dL (7.8-10.44); Carbon Dioxide 25 mmol/L (23-31); Chloride 115 mmol/L (98-107); Estimated GFR 30; Glucose 99 mg/dL (83-110); Potassium 3.6 mmol/L (3.5-5.1); Sodium 147 mmol/L (136-145)
[2022-06-10 05:19] LABS: #Eosinphils 0.1 thou/uL (0.0-0.7); #Lymphocytes 0.7 thou/uL (1.20-3.40); #Monocytes 0.3 thou/uL (0.11-0.59); #Neutrophils 3.1 thou/uL (1.40-6.50); %Basophils 0.8 % (0.0-1.0); %Eosinophils 2.5 % (0.0-10.0); %Lymphocytes 17.1 % (21.0-51.0); %Monocytes 7.5 % (0.0-10.0); %Neutrophils 72.1 % (42.0-75.0); Hemoglobin 12.5 g/dL (14.0-18.0); Mean Corpuscular HGB CONC 33.8 g/dL (32.0-36.0); Mean Corpuscular Hemoglobin 32.1 pg (27.0-31.0); Mean Corpuscular Volume 94.7 fl (78.0-98.0); Mean Platelet Volume 8.9 fL (7.4-10.4); Platelet Count 85 10x3/uL (130-400); White Blood Cell (WBC) Count 4.3 10x3/uL (4.8-10.8)
[2022-06-10 05:44] LABS: Anion Gap 11 mmol/L (10-20); BUN (Urea Nitrogen) 67 mg/dL (8.4-25.7); Calc. Creatinine Clearance 30 mL/min (70-130); Calcium 8.7 mg/dL (7.8-10.44); Carbon Dioxide 24 mmol/L (23-31); Chloride 114 mmol/L (98-107); Estimated GFR 33; Glucose 90 mg/dL (83-110); Potassium 3.4 mmol/L (3.5-5.1); Sodium 146 mmol/L (136-145)
[2022-06-10] MEDS: Dextrose 5% in Water 1,000 ML IV SCH ×2 (08:59→17:54)
[2022-06-10] MEDS: Sodium Chloride 0.45% 1,000 ML IV SCH ×2 (09:00→20:25)
[2022-06-10] MEDS: Sertraline 100 MG TAB PO SCH (09:00)
[2022-06-10] MEDS: Aspirin 81 mg Enteric Coated Tablet PO SCH (09:00)
[2022-06-10] MEDS: Carbidopa/Levodopa 25-100 mg Tablet PO SCH ×3 (09:01→20:24)
[2022-06-10 10:19] LABS: Phosphorus 4.1 mg/dL (2.3-4.7)
[2022-06-10] MEDS: Heparin 5,000 UNITS/ML VIAL SC SCH ×2 (11:09→20:23)
[2022-06-10] MEDS: Sodium Bicarbonate Tab 325 MG TAB PO SCH ×3 (11:20→20:24)
[2022-06-10] MEDS ORDERED: Potassium Chloride 20 MEQ in Premix Bag 1 BAG IVPB SCH (12:30)
[2022-06-10] MEDS ORDERED: Amlodipine 5 MG TAB PO SCH (17:00)
[2022-06-10] MEDS: Ezetimibe 10 MG TAB PO SCH (17:53)
[2022-06-10 18:42] LABS: Anion Gap 12 mmol/L (10-20); BUN (Urea Nitrogen) 54 mg/dL (8.4-25.7); Calc. Creatinine Clearance 35 mL/min (70-130); Calcium 8.7 mg/dL (7.8-10.44); Carbon Dioxide 24 mmol/L (23-31); Chloride 110 mmol/L (98-107); Estimated GFR 39; Glucose 97 mg/dL (83-110); Potassium 3.6 mmol/L (3.5-5.1); Sodium 142 mmol/L (136-145)
[2022-06-10] MEDS ORDERED: traZODone HCl 50 MG TAB PO SCH (22:00)
[2022-06-11] MEDS: Sodium Chloride 0.45% 1,000 ML IV SCH ×3 (06:03→22:25)
[2022-06-11] MEDS ORDERED: hydrALAZINE 20 MG/ML VIAL SLOW IVP PRN (08:03)
[2022-06-11] MEDS ORDERED: Amlodipine 5 MG TAB PO SCH ×2 (08:15→08:30)
[2022-06-11] MEDS: Carbidopa/Levodopa 25-100 mg Tablet PO SCH ×3 (08:17→21:23)
[2022-06-11] MEDS: Sertraline 100 MG TAB PO SCH (08:18)
[2022-06-11] MEDS: Sodium Bicarbonate Tab 325 MG TAB PO SCH ×3 (08:18→21:23)
[2022-06-11] MEDS: Aspirin 81 mg Enteric Coated Tablet PO SCH (08:18)
[2022-06-11 10:35] LABS: #Eosinphils 0.1 thou/uL (0.0-0.7); #Lymphocytes 0.7 thou/uL (1.20-3.40); #Monocytes 0.4 thou/uL (0.11-0.59); #Neutrophils 2.9 thou/uL (1.40-6.50); %Eosinophils 2.2 % (0.0-10.0); %Lymphocytes 16.9 % (21.0-51.0); %Monocytes 8.8 % (0.0-10.0); %Neutrophils 72.1 % (42.0-75.0); Hemoglobin 13.2 g/dL (14.0-18.0); Mean Corpuscular Hemoglobin 31.3 pg (27.0-31.0); Mean Corpuscular Volume 92.1 fl (78.0-98.0); Mean Platelet Volume 8.6 fL (7.4-10.4); Platelet Count 101 10x3/uL (130-400); RBC Distribution Width 11.9 % (11.5-14.5); Red Blood Cell (RBC) Count 4.23 mill/uL (4.70-6.10)
[2022-06-11 10:47] LABS: Anion Gap 12 mmol/L (10-20); BUN (Urea Nitrogen) 44 mg/dL (8.4-25.7); CK (CPK) 189 U/L (30-200); Calc. Creatinine Clearance 39 mL/min (70-130); Calcium 9.2 mg/dL (7.8-10.44); Carbon Dioxide 26 mmol/L (23-31); Chloride 110 mmol/L (98-107); Estimated GFR 46; Glucose 96 mg/dL (83-110); Potassium 3.6 mmol/L (3.5-5.1); Sodium 144 mmol/L (136-145)
[2022-06-11] MEDS: Ezetimibe 10 MG TAB PO SCH (17:51)
[2022-06-11] MEDS ORDERED: Amlodipine 10 MG TAB PO SCH (21:00)
[2022-06-11] MEDS: Carvedilol 6.25 MG TAB PO SCH (21:23)
[2022-06-12 06:29] LABS: #Eosinphils 0.1 thou/uL (0.0-0.7); #Lymphocytes 0.7 thou/uL (1.20-3.40); #Monocytes 0.3 thou/uL (0.11-0.59); #Neutrophils 3.4 thou/uL (1.40-6.50); %Basophils 0.4 % (0.0-1.0); %Eosinophils 2.5 % (0.0-10.0); %Lymphocytes 14.8 % (21.0-51.0); %Monocytes 7.2 % (0.0-10.0); %Neutrophils 75.1 % (42.0-75.0); Hemoglobin 13.2 g/dL (14.0-18.0); Mean Corpuscular HGB CONC 34.2 g/dL (32.0-36.0); Mean Corpuscular Hemoglobin 31.5 pg (27.0-31.0); Mean Corpuscular Volume 91.9 fl (78.0-98.0); Mean Platelet Volume 8.9 fL (7.4-10.4); Platelet Count 82 10x3/uL (130-400); RBC Distribution Width 11.9 % (11.5-14.5); Red Blood Cell (RBC) Count 4.21 mill/uL (4.70-6.10); White Blood Cell (WBC) Count 4.5 10x3/uL (4.8-10.8)
[2022-06-12 06:41] LABS: Phosphorus 4.1 mg/dL (2.3-4.7)
[2022-06-12 06:41] LABS: Anion Gap 13 mmol/L (10-20); BUN (Urea Nitrogen) 39 mg/dL (8.4-25.7); Calc. Creatinine Clearance 42 mL/min (70-130); Calcium 9.2 mg/dL (7.8-10.44); Carbon Dioxide 24 mmol/L (23-31); Chloride 107 mmol/L (98-107); Estimated GFR 50; Glucose 87 mg/dL (83-110); Potassium 3.3 mmol/L (3.5-5.1); Sodium 141 mmol/L (136-145)
[2022-06-12] MEDS ORDERED: Potassium Chloride 20 MEQ TAB PO SCH (07:00)
[2022-06-12] MEDS: Carvedilol 6.25 MG TAB PO SCH ×2 (08:47→20:39)
[2022-06-12] MEDS: Sertraline 100 MG TAB PO SCH (08:47)
[2022-06-12] MEDS: Aspirin 81 mg Enteric Coated Tablet PO SCH (08:47)
[2022-06-12] MEDS: Sodium Bicarbonate Tab 325 MG TAB PO SCH ×3 (08:47→20:39)
[2022-06-12] MEDS: Carbidopa/Levodopa 25-100 mg Tablet PO SCH ×3 (08:48→20:39)
[2022-06-12] MEDS ORDERED: Amlodipine 10 MG TAB PO SCH (09:00)
[2022-06-12] MEDS: Ezetimibe 10 MG TAB PO SCH (16:25)
[2022-06-12] MEDS: Sodium Chloride 0.45% 1,000 ML IV SCH (16:40)
[2022-06-13] MEDS: Sodium Chloride 0.45% 1,000 ML IV SCH (03:03)
[2022-06-13 07:37] LABS: Anion Gap 10 mmol/L (10-20); BUN (Urea Nitrogen) 34 mg/dL (8.4-25.7); Calc. Creatinine Clearance 45 mL/min (70-130); Carbon Dioxide 27 mmol/L (23-31); Chloride 108 mmol/L (98-107); Estimated GFR 54; Glucose 91 mg/dL (83-110); Potassium 3.4 mmol/L (3.5-5.1); Sodium 142 mmol/L (136-145)
[2022-06-13 07:50] LABS: #Eosinphils 0.1 thou/uL (0.0-0.7); #Lymphocytes 0.8 thou/uL (1.20-3.40); #Monocytes 0.3 thou/uL (0.11-0.59); #Neutrophils 3.3 thou/uL (1.40-6.50); %Basophils 0.4 % (0.0-1.0); %Eosinophils 2.3 % (0.0-10.0); %Monocytes 7.5 % (0.0-10.0); %Neutrophils 72.7 % (42.0-75.0); Hemoglobin 12.9 g/dL (14.0-18.0); Mean Corpuscular HGB CONC 33.6 g/dL (32.0-36.0); Mean Corpuscular Hemoglobin 30.7 pg (27.0-31.0); Mean Corpuscular Volume 91.4 fl (78.0-98.0); Mean Platelet Volume 8.7 fL (7.4-10.4); Platelet Count 87 10x3/uL (130-400); RBC Distribution Width 11.9 % (11.5-14.5); White Blood Cell (WBC) Count 4.5 10x3/uL (4.8-10.8)
[2022-06-13] MEDS ORDERED: NIFEdipine XL 60 MG TAB PO SCH (09:00)
[2022-06-13] MEDS: Aspirin 81 mg Enteric Coated Tablet PO SCH (09:15)
[2022-06-13] MEDS: Sodium Bicarbonate Tab 325 MG TAB PO SCH ×3 (09:15→22:14)
[2022-06-13] MEDS: Carbidopa/Levodopa 25-100 mg Tablet PO SCH ×3 (09:16→22:14)
[2022-06-13] MEDS: Sertraline 100 MG TAB PO SCH (09:17)
[2022-06-13] MEDS: Carvedilol 6.25 MG TAB PO SCH (10:40)
[2022-06-13] MEDS ORDERED: Potassium Chloride 20 MEQ TAB PO SCH (11:00)
[2022-06-13] MEDS ORDERED: Amlodipine 10 MG TAB PO SCH (11:30)
[2022-06-13] MEDS: Amlodipine 10 MG TAB PO SCH (12:13)
[2022-06-13] MEDS: Ezetimibe 10 MG TAB PO SCH (16:45)
[2022-06-13] MEDS: Mirtazapine 15 MG Soltab PO SCH (22:14)
[2022-06-14] MEDS: Sertraline 100 MG TAB PO SCH (09:07)
[2022-06-14] MEDS: Aspirin 81 mg Enteric Coated Tablet PO SCH (09:07)
[2022-06-14] MEDS: Clopidogrel Bisulfate 75 MG TAB PO SCH (09:08)
[2022-06-14] MEDS: Amlodipine 10 MG TAB PO SCH (09:08)
[2022-06-14] MEDS: Carbidopa/Levodopa 25-100 mg Tablet PO SCH ×3 (09:12→21:19)
[2022-06-14] MEDS: Sodium Bicarbonate Tab 325 MG TAB PO SCH ×3 (09:12→21:19)
[2022-06-14] MEDS ORDERED: hydrALAZINE 25 MG TAB PO SCH (12:15)
[2022-06-14 12:37] LABS: #Eosinphils 0.1 thou/uL (0.0-0.7); #Lymphocytes 0.6 thou/uL (1.20-3.40); #Monocytes 0.3 thou/uL (0.11-0.59); #Neutrophils 4.6 thou/uL (1.40-6.50); %Basophils 0.3 % (0.0-1.0); %Eosinophils 2.1 % (0.0-10.0); %Lymphocytes 10.6 % (21.0-51.0); %Monocytes 5.7 % (0.0-10.0); %Neutrophils 81.2 % (42.0-75.0); Hemoglobin 14.1 g/dL (14.0-18.0); Mean Corpuscular HGB CONC 34.8 g/dL (32.0-36.0); Mean Corpuscular Hemoglobin 31.6 pg (27.0-31.0); Mean Corpuscular Volume 90.7 fl (78.0-98.0); Mean Platelet Volume 8.6 fL (7.4-10.4); Platelet Count 97 10x3/uL (130-400); RBC Distribution Width 11.9 % (11.5-14.5); Red Blood Cell (RBC) Count 4.46 mill/uL (4.70-6.10); White Blood Cell (WBC) Count 5.6 10x3/uL (4.8-10.8)
[2022-06-14 12:52] LABS: Anion Gap 12 mmol/L (10-20); BUN (Urea Nitrogen) 27 mg/dL (8.4-25.7); Calc. Creatinine Clearance 47 mL/min (70-130); Calcium 9.6 mg/dL (7.8-10.44); Carbon Dioxide 27 mmol/L (23-31); Chloride 107 mmol/L (98-107); Estimated GFR 57; Glucose 110 mg/dL (83-110); Magnesium 1.9 mg/dL (1.6-2.6); Potassium 3.2 mmol/L (3.5-5.1); Sodium 143 mmol/L (136-145)
[2022-06-14] MEDS ORDERED: NS 0.9% w/ 40 MEQ KCL 1,000 ML IV SCH (14:15)
[2022-06-14] MEDS: hydrALAZINE 25 MG TAB PO SCH ×2 (16:52→21:19)
[2022-06-14] MEDS: Ezetimibe 10 MG TAB PO SCH (16:53)
[2022-06-14] MEDS: Mirtazapine 15 MG Soltab PO SCH (21:19)
[2022-06-15 06:45] LABS: #Lymphocytes 0.3 thou/uL (1.20-3.40); #Monocytes 0.3 thou/uL (0.11-0.59); #Neutrophils 4.7 thou/uL (1.40-6.50); %Eosinophils 0.4 % (0.0-10.0); %Lymphocytes 5.2 % (21.0-51.0); %Monocytes 6.1 % (0.0-10.0); %Neutrophils 88.2 % (42.0-75.0); Hemoglobin 13.3 g/dL (14.0-18.0); Mean Corpuscular HGB CONC 34.3 g/dL (32.0-36.0); Mean Corpuscular Hemoglobin 31.3 pg (27.0-31.0); Mean Corpuscular Volume 91.4 fl (78.0-98.0); Mean Platelet Volume 8.8 fL (7.4-10.4); Platelet Count 80 10x3/uL (130-400); RBC Distribution Width 12.1 % (11.5-14.5); Red Blood Cell (RBC) Count 4.26 mill/uL (4.70-6.10); White Blood Cell (WBC) Count 5.3 10x3/uL (4.8-10.8)
[2022-06-15 07:09] LABS: Anion Gap 17 mmol/L (10-20); BUN (Urea Nitrogen) 26 mg/dL (8.4-25.7); Calc. Creatinine Clearance 43 mL/min (70-130); Calcium 9.1 mg/dL (7.8-10.44); Carbon Dioxide 21 mmol/L (23-31); Chloride 110 mmol/L (98-107); Estimated GFR 51; Glucose 106 mg/dL (83-110); Potassium 3.5 mmol/L (3.5-5.1); Sodium 144 mmol/L (136-145)
[2022-06-15] MEDS ORDERED: Electrolyte Replacement Protocol 1 EACH FS SCH (09:15)
[2022-06-15] MEDS: Sodium Bicarbonate Tab 325 MG TAB PO SCH ×3 (09:42→21:17)
[2022-06-15] MEDS: Sertraline 100 MG TAB PO SCH (09:42)
[2022-06-15] MEDS: Carbidopa/Levodopa 25-100 mg Tablet PO SCH ×3 (09:42→21:18)
[2022-06-15] MEDS: Aspirin 81 mg Enteric Coated Tablet PO SCH (09:42)
[2022-06-15] MEDS: hydrALAZINE 25 MG TAB PO SCH ×3 (09:43→21:17)
[2022-06-15] MEDS: Amlodipine 10 MG TAB PO SCH (09:43)
[2022-06-15] MEDS: Clopidogrel Bisulfate 75 MG TAB PO SCH (09:43)
[2022-06-15] MEDS ORDERED: Electrolyte Replacement Protocol FS PRN (09:45)
[2022-06-15] MEDS ORDERED: Potassium Bicarbonate/Cit Ac 20 MEQ TAB PO SCH (13:00)
[2022-06-15] MEDS: Ezetimibe 10 MG TAB PO SCH (17:55)
[2022-06-15] MEDS: Cyanocobalamin (Vitamin B-12) 1,000 MCG TAB PO SCH (21:18)
[2022-06-15] MEDS: Acetaminophen 325 MG TAB PO PRN (21:18)
[2022-06-15] MEDS: Multivit, Therapeutic 1 TAB PO SCH (21:18)
[2022-06-15] MEDS: Folic Acid 1 MG TAB PO SCH (21:18)
[2022-06-16] MEDS: hydrALAZINE 25 MG TAB PO SCH ×3 (05:25→23:44)
[2022-06-16 07:08] LABS: #Lymphocytes 0.2 thou/uL (1.20-3.40); #Monocytes 0.3 thou/uL (0.11-0.59); #Neutrophils 3.5 thou/uL (1.40-6.50); %Eosinophils 0.2 % (0.0-10.0); %Lymphocytes 5.7 % (21.0-51.0); %Monocytes 8.1 % (0.0-10.0); Hemoglobin 12.7 g/dL (14.0-18.0); Mean Corpuscular HGB CONC 33.5 g/dL (32.0-36.0); Mean Corpuscular Volume 92.5 fl (78.0-98.0); Mean Platelet Volume 8.3 fL (7.4-10.4); Platelet Count 73 10x3/uL (130-400); RBC Distribution Width 11.9 % (11.5-14.5); Red Blood Cell (RBC) Count 4.11 mill/uL (4.70-6.10); White Blood Cell (WBC) Count 4.1 10x3/uL (4.8-10.8)
[2022-06-16 07:29] LABS: Anion Gap 15 mmol/L (10-20); BUN (Urea Nitrogen) 33 mg/dL (8.4-25.7); Calc. Creatinine Clearance 37 mL/min (70-130); Calcium 8.9 mg/dL (7.8-10.44); Carbon Dioxide 23 mmol/L (23-31); Chloride 112 mmol/L (98-107); Estimated GFR 43; Glucose 124 mg/dL (83-110); Magnesium 1.9 mg/dL (1.6-2.6); Phosphorus 4.4 mg/dL (2.3-4.7); Potassium 3.8 mmol/L (3.5-5.1); Sodium 146 mmol/L (136-145)
[2022-06-16] MEDS ORDERED: Magnesium 2 GM/50 ML(in water) 2 GM in Premix Bag 1 BAG IVPB SCH ×2 (08:00→08:30)
[2022-06-16] MEDS: Carbidopa/Levodopa 25-100 mg Tablet PO SCH ×3 (10:00→21:06)
[2022-06-16] MEDS: Sertraline 100 MG TAB PO SCH (10:00)
[2022-06-16] MEDS: Sodium Bicarbonate Tab 325 MG TAB PO SCH ×3 (10:00→21:06)
[2022-06-16] MEDS: Amlodipine 10 MG TAB PO SCH (10:00)
[2022-06-16] MEDS: Clopidogrel Bisulfate 75 MG TAB PO SCH (10:00)
[2022-06-16] MEDS: Aspirin 81 mg Enteric Coated Tablet PO SCH (10:01)
[2022-06-16] MEDS: Sodium Bicarbonate 50 MEQ in Dextrose 5% in Water 1,000 ML IV SCH ×2 (10:01→21:05)
[2022-06-16] MEDS: Ezetimibe 10 MG TAB PO SCH (15:56)
[2022-06-16] MEDS: Acetaminophen 325 MG TAB PO PRN (21:06)
[2022-06-16] MEDS: Folic Acid 1 MG TAB PO SCH (21:07)
[2022-06-16] MEDS: Multivit, Therapeutic 1 TAB PO SCH (21:07)
[2022-06-16] MEDS: Cyanocobalamin (Vitamin B-12) 1,000 MCG TAB PO SCH (21:07)
[2022-06-17] MEDS: hydrALAZINE 25 MG TAB PO SCH ×2 (06:52→13:27)
[2022-06-17] MEDS: Sodium Bicarbonate 50 MEQ in Dextrose 5% in Water 1,000 ML IV SCH ×2 (07:52→13:39)
[2022-06-17] MEDS: Aspirin 81 mg Enteric Coated Tablet PO SCH (08:42)
[2022-06-17] MEDS: Amlodipine 10 MG TAB PO SCH (08:42)
[2022-06-17] MEDS: Sodium Bicarbonate Tab 325 MG TAB PO SCH ×2 (08:42→15:18)
[2022-06-17] MEDS: Carbidopa/Levodopa 25-100 mg Tablet PO SCH ×2 (08:42→15:19)
[2022-06-17] MEDS: Sertraline 100 MG TAB PO SCH (08:42)
[2022-06-17] MEDS: Clopidogrel Bisulfate 75 MG TAB PO SCH (08:43)
[2022-06-17] MEDS: Acetaminophen 325 MG TAB PO PRN (13:33)
[2022-06-17 13:34] VITALS: BP 163/77
[2022-06-17] MEDS ORDERED: Amoxicillin/Potassium Clav 600 mg/5 ml Oral Suspension PO SCH (14:00)
[2022-06-17] MEDS ORDERED: Amoxicillin/Potassium Clav 875 MG TAB PER TUBE SCH (14:45)
[2022-06-17 15:21] VITALS: TEMP 99.9
== END 2022-06-17 15:33 | DRG 682 ==
LOC: ERS 10:45 → ERHOLD 14:45 → 2NO 16:53 → T4-A 06-11 21:04
PROVIDERS: ADMIT Hospitalist; ATTEND Internal Medicine
DX: N17.9 Acute kidney failure, unspecified (principal); G93.41 Metabolic encephalopathy; E87.0 Hyperosmolality and hypernatremia; E87.20 Acidosis, unspecified; M62.82 Rhabdomyolysis; I24.8 Other forms of acute ischemic heart disease; E87.1 Hypo-osmolality and hyponatremia; D61.818 Other pancytopenia; J98.11 Atelectasis; Z66 Do not resuscitate; Z51.5 Encounter for palliative care; I25.10 Atherosclerotic heart disease of native coronary artery without angina pectoris; E78.5 Hyperlipidemia, unspecified; N40.0 Benign prostatic hyperplasia without lower urinary tract symptoms; G89.29 Other chronic pain; G20 Parkinson's disease; I12.9 Hypertensive chronic kidney disease with stage 1 through stage 4 chronic kidney disease, or unspecified chronic kidney disease; F02.80 Dementia in other diseases classified elsewhere, unspecified severity, without behavioral disturbance, psychotic disturbance, mood disturbance, and anxiety; E86.0 Dehydration; E78.00 Pure hypercholesterolemia, unspecified; F41.9 Anxiety disorder, unspecified; N18.30 Chronic kidney disease, stage 3 unspecified; R13.10 Dysphagia, unspecified; E83.42 Hypomagnesemia; E87.5 Hyperkalemia; Z20.822 Contact with and (suspected) exposure to COVID-19; E87.6 Hypokalemia; D69.6 Thrombocytopenia, unspecified; Z79.82 Long term (current) use of aspirin; Z79.899 Other long term (current) drug therapy; Z86.73 Personal history of transient ischemic attack (TIA), and cerebral infarction without residual deficits; Z95.1 Presence of aortocoronary bypass graft; Z98.890 Other specified postprocedural states; N28.1 Cyst of kidney, acquired
CPT/HCPCS: 36415; 70450; 71045; 74230; 76770; 80048; 80053; 81001; 82550; 82553; 82570; 83690; 83735; 84100; 84156; 84300; 84484; 84540; 85025; 87811; 93005; 93306; J0360; J1644; J3475; J3480; J7030; J7070; U0003; U0005